=== PATIENT | female | born 1980 | race Asian ===

== ENCOUNTER → 2018-02-13 11:10 | Outpatient (CLI) | payer OTHER, SELFPAY ==
[2018-02-13 12:34] LABS: TSH w/ Reflex to FT4 1.11 uIU/mL (0.47-4.68)
== END ==
PROVIDERS: PCP Family Medicine; Visit Provider Family Medicine
DX: E05.90 Thyrotoxicosis, unspecified without thyrotoxic crisis or storm (principal)
CPT/HCPCS: 36415; 84443

== ENCOUNTER → 2018-03-14 11:23 | Outpatient (CLI) | payer OTHER, SELFPAY ==
[2018-03-14 13:27] LABS: TSH w/ Reflex to FT4 0.78 uIU/mL (0.47-4.68)
== END ==
PROVIDERS: PCP Family Medicine; Visit Provider Family Medicine
DX: E05.90 Thyrotoxicosis, unspecified without thyrotoxic crisis or storm (principal)
CPT/HCPCS: 36415; 84443

== ENCOUNTER → 2019-03-26 10:14 | Outpatient (CLI) | payer OTHER, SELFPAY ==
[2019-03-26 12:28] LABS: TSH w/ Reflex to FT4 0.11 uIU/mL (0.47-4.68)
[2019-03-26 13:03] LABS: Free T4, Direct Thyroxine 1.63 ng/dL (0.78-2.19)
== END ==
PROVIDERS: PCP Family Medicine; Visit Provider Family Medicine
DX: E05.90 Thyrotoxicosis, unspecified without thyrotoxic crisis or storm (principal)
CPT/HCPCS: 36415; 84439; 84443

== ENCOUNTER → 2019-06-24 10:15 | Outpatient (CLI) | payer OTHER, SELFPAY ==
[2019-06-24 12:08] LABS: TSH w/ Reflex to FT4 0.39 uIU/mL (0.47-4.68)
[2019-06-24 12:51] LABS: Free T4, Direct Thyroxine 1.18 ng/dL (0.78-2.19)
== END ==
PROVIDERS: PCP Family Medicine; Visit Provider Family Medicine
DX: E05.90 Thyrotoxicosis, unspecified without thyrotoxic crisis or storm (principal)
CPT/HCPCS: 36415; 84439; 84443

== ENCOUNTER → 2019-09-26 13:45 | Outpatient (CLI) | payer OTHER, SELFPAY ==
[2019-09-26 15:05] LABS: TSH w/ Reflex to FT4 1.23 uIU/mL (0.47-4.68)
== END ==
PROVIDERS: PCP Family Medicine; Referring Provider Family Medicine; Visit Provider Family Medicine
DX: E05.90 Thyrotoxicosis, unspecified without thyrotoxic crisis or storm (principal)
CPT/HCPCS: 36415; 84443

== ENCOUNTER → 2019-10-06 09:14 | Outpatient (CLI) | payer OTHER, SELFPAY ==
--- NOTE | 2019-10-06 | DI.MG.S_ITS ---
BILATERAL DIGITAL DIAGNOSTIC MAMMOGRAM 3D/2D: 10/06/2019 CLINICAL: Right breast lump baseline. Baseline mammogram. No prior exams were available for comparison. The tissue of both breasts is extremely dense, which lowers the sensitivity of mammography. No mass identified deep to the palpable skin marker in the right breast upper outer quadrant anterior depth. There are 2.7 cm x 1.2 cm x 2.6 cm segmental fine calcifications in the right breast at 3 o'clock middle depth. These are seen in additional views. There are possible amorphous calcifications in the left breast at 12 o'clock posterior depth. These are not seen in additional views. No other significant masses or calcifications are seen in either breast. IMPRESSION: SUSPICIOUS OF MALIGNANCY 1) The segmental fine calcifications in the right breast at 3 o'clock middle depth are at a low suspicion for malignancy. A stereotactic biopsy is recommended. Targeted ultrasound is also recommended and will immediately follow. 2) No significant mammographic finding in the right breast upper outer quadrant anterior depth to correlate with the palpable abnormality. Targeted ultrasound is recommended and will immediately follow. 3) Possible amorphous calcification in the left breast at 12 o'clock posterior depth are not seen on additional views and are probably benign. A follow-up mammogram in 6 months is recommended. This exam was interpreted at Station ID: [id number]. NOTE: For mammograms, a report in lay terms will be sent to the patient. Approximately 15% of breast malignancies will not be visualized mammographically. In the management of a palpable breast mass, a negative mammogram must not discourage biopsy of a clinically suspicious lesion. Electronically Signed By: Rey Martínez M.D. [facility] [place]/:10/06/2019 12:09:47 letter sent: Biopsy Required ACR BI-RADS Category 4a: Suspicious abnormality - low suspicion for malignancy [id number]
--- NOTE | 2019-10-06 09:15 | DI.US.S_ITS ---
LIMITED ULTRASOUND OF RIGHT BREAST AND AXILLA: 10/06/2019 CLINICAL: Palpable right breast lump + 2 areas concern on mammo. Comparison is made to exam dated: 10/06/2019 [facility]. Color flow and real-time ultrasound of the right breast 3 o'clock, 11 o'clock, and axilla regions were performed. Evans scale images of the real-time examination were reviewed. No mass identified sonographically in the medial right breast near the calcifications seen on mammogram. There is a 1.6 cm x 1.2 cm x 1.6 cm oval cyst with a smooth internal wall in the right breast at 11 o'clock anterior depth 4 cm from the nipple. This oval cyst is hypoechoic with a well-defined boundary and posterior acoustic enhancement. This correlates as palpated. Color flow imaging demonstrates that there is no vascularity present. There is an adjacent cyst measuring 0.9 cm that appears simple. Additionally, there is a 1.7 cm x 0.8 cm x 1.4 cm enlarged lymph node with uniform cortical thickening with a circumscribed margin in the right axillary tail. Cortex measures approximately 0.3 cm. This enlarged lymph node is hypoechoic with fatty hilum. This correlates as an incidental finding but was not seen on the prior diagnostic mammogram. Color flow imaging demonstrates that there is increased vascularity. IMPRESSION: PROBABLY BENIGN 1) No sonographic abnormality in the region of suspicious calcifications in the medial right breast. A stereotactic biopsy is recommended. 2) The 1.6 cm oval cyst in the right breast at 11 o'clock anterior depth corresponding to the palpable abnormality is consistent with a complicated cyst and is probably benign. Follow-up mammogram and ultrasound in 6 months is recommended. 3) The enlarged lymph node with uniform cortical thickening in the right axillary tail is probably benign. A follow-up ultrasound in 6 months is recommended to demonstrate stability. If the stereotactic biopsy is positive for breast carcinoma, an ultrasound guided biopsy would be recommended. Exam findings were discussed with the patient over the phone by Dr. Martínez. This exam was interpreted at Station ID: [id number]. Electronically Signed By: Rey Martínez M.D. [facility] [place]/:10/06/2019 12:28:33 letter sent: Followup Recommended Ultrasound BI-RADS: 3 Probably benign
== END ==
PROVIDERS: PCP Family Medicine; Referring Provider Family Medicine; Visit Provider Family Medicine
DX: R92.8 Other abnormal and inconclusive findings on diagnostic imaging of breast (principal); R92.1 Mammographic calcification found on diagnostic imaging of breast; N60.01 Solitary cyst of right breast; R59.0 Localized enlarged lymph nodes
CPT/HCPCS: 76642; 77066; G0279

== ENCOUNTER → 2020-03-19 12:44 | Outpatient (CLI) | payer OTHER, SELFPAY ==
--- NOTE | 2020-03-19 13:03 | DI.MG.S_ITS ---
Patient Name: ARABELLA BYNUM date: 1980 Sex: F Attending Physician: Kelvin Indications: Date: 03/19/2020 13:01 At the request of: RONEY WALLACE Procedure: MM diagnostic mammo BI BILATERAL DIGITAL DIAGNOSTIC MAMMOGRAM 3D/2D SHORT-TERM FOLLOW-UP: 03/19/2020 CLINICAL: Patient returns for a 6 month follow up of bilateral breasts. Comparison is made to exams dated: 10/24/2019 [facility], 10/06/2019 ultrasound, and 10/06/2019 mammogram [facility]. The tissue of both breasts is extremely dense, which lowers the sensitivity of mammography. The possible amorphous calcifications in the left breast are not visualized on this exam. There are benign calcifications with biopsy marking clip in the right breast. No significant masses, calcifications, or other findings are seen in either breast. IMPRESSION: INCOMPLETE: NEEDS ADDITIONAL IMAGING EVALUATION There is no abnormality seen in the right breast to correspond with the ultrasound finding, however, ultrasound is recommended. This exam was interpreted at Station ID: [id number]. NOTE: For mammograms, a report in lay terms will be sent to the patient. Approximately 15% of breast malignancies will not be visualized mammographically. In the management of a palpable breast mass, a negative mammogram must not discourage biopsy of a clinically suspicious lesion. SUMMARY: Targeted ultrasound is recommended for further evaluation and will be scheduled immediately following this exam. Continued Report - Page 2 of 2 Patient Name: ARABELLA BYNUM date: 1980 Sex: F Attending Physician: Kelvin Indications: Date: 03/19/2020 13:01 At the request of: RONEY WALLACE Procedure: MM diagnostic mammo BI Electronically Signed By: Con cuba/penrad:03/19/2020 14:59:20 ACR BI-RADS Category 0: Incomplete [id number]
--- NOTE | 2020-03-19 13:34 | DI.US.S_ITS ---
Patient Name: ARABELLA BYNUM date: 1980 Sex: F Attending Physician: Kelvin Indications: Date: 03/19/2020 13:47 At the request of: RONEY WALLACE Procedure: US breast RT limited LIMITED ULTRASOUND OF RIGHT BREAST AND AXILLA: 03/19/2020 CLINICAL: 6 month follow-up of cysts. Comparison is made to exams dated: 03/19/2020 mammogram - [facility], 10/24/2019 specimen, 10/24/2019 stereotactic biopsy - [facility] ultrasound of the right breast axilla was performed. Evans scale images of the real-time examination were reviewed. There are probably benign enlarged nodes in the right axilla that are not significantly changed. There is a benign 1 cm x 0.9 cm x 0.6 cm oval cyst with a smooth internal wall in the right breast at 11 o'clock anterior depth 4 cm from the nipple. This oval cyst is anechoic with a well-defined boundary and posterior acoustic enhancement. This abnormality is decreased in size. IMPRESSION: PROBABLY BENIGN The 1 cm x 0.9 cm x 0.6 cm oval cyst in the right breast is benign. A follow-up right ultrasound in 6 months is recommended to demonstrate stability. This exam was interpreted at Station ID: [id number]. Electronically Signed By: Con cuba/sean:03/19/2020 15:06:21 letter sent: Followup Recommended Ultrasound BI-RADS: 3 Probably benign
== END ==
PROVIDERS: PCP Family Medicine; Referring Provider Family Medicine; Visit Provider Family Medicine
DX: R92.8 Other abnormal and inconclusive findings on diagnostic imaging of breast (principal); R92.1 Mammographic calcification found on diagnostic imaging of breast; N60.01 Solitary cyst of right breast
CPT/HCPCS: 76642; 77066; G0279

== ENCOUNTER → 2020-08-02 12:14 | Outpatient (CLI) | payer OTHER, SELFPAY ==
[2020-08-02 13:49] LABS: Free T4, Direct Thyroxine 0.89 ng/dL (0.78-2.19)
[2020-08-02 14:03] LABS: Thyroid Stimulating Hormone 1.59 uIU/mL (0.47-4.68)
== END ==
PROVIDERS: PCP Family Medicine; Referring Provider Family Medicine; Visit Provider Family Medicine
DX: E05.90 Thyrotoxicosis, unspecified without thyrotoxic crisis or storm (principal)
CPT/HCPCS: 36415; 84439; 84443

== ENCOUNTER → 2020-09-08 11:18 | Outpatient (CLI) | payer OTHER, SELFPAY ==
--- NOTE | 2020-09-08 | DI.US.S_ITS ---
ULTRASOUND OF RIGHT BREAST: 09/08/2020 CLINICAL: Patient returns today to evaluate focal asymmetries in the right breast. Comparison is made to exams dated: 03/19/2020 mammogram - [facility], 10/24/2019 specimen, 10/24/2019 stereotactic biopsy - [facility], 10/06/2019 ultrasound, and 03/19/2020 ultrasound - [facility]. Color flow and real-time ultrasound of the right breast were performed. Evans scale images of the real-time examination were reviewed. There is a 0.6 cm x 0.6 cm x 0.8 cm cyst with debris in the right breast at 11 o'clock middle depth 4 cm from the nipple. This cyst with debris is hypoechoic, previously characterized to be simple, and likely now proteinaceous. Color flow imaging demonstrates that there is an adjacent vascularity. This abnormality is decreased in size. There also is a benign 1.0 cm x 0.6 cm x 1.0 cm oval cyst with a smooth internal wall in the right breast at 11 o'clock posterior depth 4 cm from the nipple. This oval cyst is anechoic. This abnormality is not significantly changed. Color flow imaging demonstrates that there is no vascularity present. Additionally, there are a few benign lymph nodes in the right axillary tail. These have not significantly changed. IMPRESSION: PROBABLY BENIGN The 0.8 cm cyst with debris in the right breast at 11 o'clock middle depth is consistent with a proteinaceous/ complicated cyst, has decreased in size, and is probably benign. The 1.0 cm oval cyst in the right breast at 11 o'clock posterior depth is consistent with a simple cyst and is benign. The lymph node in the right axillary tail is consistent with a lymph node and is benign. A follow-up right ultrasound in 12 months is recommended to document continued resolution of the proteinaceous cyst Findings and recommendations were conveyed to the patient at time of exam. . This exam was interpreted at Station ID: [id number]. Electronically Signed By: Nadia henry/:09/09/2020 16:22:56 letter sent: Followup Recommended Ultrasound BI-RADS: 3 Probably benign
== END ==
PROVIDERS: PCP Family Medicine; Referring Provider Family Medicine; Visit Provider Family Medicine
DX: R92.8 Other abnormal and inconclusive findings on diagnostic imaging of breast (principal); N60.01 Solitary cyst of right breast
CPT/HCPCS: 76642

== ENCOUNTER → 2020-09-24 15:23 | Outpatient (CLI) | payer OTHER, SELFPAY ==
[2020-09-24] MEDS: COVID-19 VACC #1, MRNA(MOD) 100 MCG/0.5 ML VIAL IM (15:31)
== END ==
PROVIDERS: PCP Family Medicine; Visit Provider Internal Medicine
DX: Z23 Encounter for immunization (principal)
CPT/HCPCS: 0011A; 91301

== ENCOUNTER → 2020-10-22 12:29 | Outpatient (CLI) | payer OTHER, SELFPAY ==
[2020-10-22] MEDS: COVID-19 VACC #2, MRNA(MOD) 100 MCG/0.5 ML VIAL IM (12:44)
== END ==
PROVIDERS: PCP Family Medicine; Visit Provider Internal Medicine
DX: Z23 Encounter for immunization (principal)
CPT/HCPCS: 0012A; 91301

== ENCOUNTER → 2021-04-07 15:41 | Outpatient (CLI) | payer OTHER, SELFPAY ==
[2021-04-07 17:20] LABS: TSH w/ Reflex to FT4 1.25 uIU/mL (0.47-4.68)
== END ==
PROVIDERS: PCP Family Medicine; Referring Provider Family Medicine; Visit Provider Family Medicine
DX: E05.90 Thyrotoxicosis, unspecified without thyrotoxic crisis or storm (principal)
CPT/HCPCS: 36415; 84443

== ENCOUNTER → 2021-08-31 14:12 | Outpatient (CLI) | payer OTHER, SELFPAY ==
--- NOTE | 2021-08-31 14:14 | DI.US.S_ITS ---
LIMITED ULTRASOUND OF RIGHT BREAST: 08/31/2021 CLINICAL: Palpable right breast lump. Comparison is made to exams dated: 08/31/2021 mammogram, 09/08/2020 ultrasound, 03/19/2020 mammogram, and 03/19/2020 ultrasound - [facility]. Color flow and real-time ultrasound of the right breast 10-11 o'clock region were performed. Evans scale images of the real-time examination were reviewed. There is a new 0.5 cm taller than wide irregular solid mass in the right breast at 10 o'clock posterior depth. This irregular solid mass is hypoechoic with no posterior acoustic shadowing or enhancement. There also is a 0.6 cm x 0.6 cm x 0.8 cm cyst with debris in the right breast at 11 o'clock posterior depth 4 cm from the nipple. This cyst with debris is hypoechoic. This abnormality is not significantly changed. Color flow imaging demonstrates that there is an adjacent vascularity. IMPRESSION: SUSPICIOUS OF MALIGNANCY The new 0.5 cm taller than wide irregular solid mass in the right breast at 10 o'clock posterior depth is suspicious of malignancy. An ultrasound guided biopsy is recommended. The 0.6 cm x 0.6 cm x 0.8 cm cyst with debris in the right breast at 11 o'clock posterior depth is consistent with a complicated cyst and is probably benign. This exam was interpreted at Station ID: [id number]. Electronically Signed By: Inder Kimbrough M.D., jr/sean:08/31/2021 15:28:28 letter sent: Biopsy Required Ultrasound BI-RADS: 4 Suspicious for malignancy
--- NOTE | 2021-08-31 14:14 | DI.MG.S_ITS ---
BILATERAL DIGITAL DIAGNOSTIC MAMMOGRAM 3D/2D: 08/31/2021 CLINICAL: Short term follow up of the right breast. Comparison is made to exams dated: 09/08/2020 ultrasound, 03/19/2020 ultrasound, and 03/19/2020 mammogram - [facility]. The tissue of both breasts is extremely dense, which lowers the sensitivity of mammography. The possible amorphous calcifications in the left breast are not visualized on this exam. There are benign calcifications with biopsy marking clip in the right breast. No significant masses, calcifications, or other findings are seen in either breast. IMPRESSION: INCOMPLETE: NEEDS ADDITIONAL IMAGING EVALUATION No suspicious finding. Previously recommended ultrasound is being performed currently, report forthcoming. This exam was interpreted at Station ID: [id number]. NOTE: For mammograms, a report in lay terms will be sent to the patient. Approximately 15% of breast malignancies will not be visualized mammographically. In the management of a palpable breast mass, a negative mammogram must not discourage biopsy of a clinically suspicious lesion. Electronically Signed By: Inder Kimbrough M.D. jr/:08/31/2021 15:09:35 ACR BI-RADS Category 0: Incomplete 3340F
== END ==
PROVIDERS: PCP Family Medicine; Referring Provider Family Medicine; Visit Provider Family Medicine
DX: R92.8 Other abnormal and inconclusive findings on diagnostic imaging of breast (principal); N63.11 Unspecified lump in the right breast, upper outer quadrant; N60.02 Solitary cyst of left breast
CPT/HCPCS: 76642; 77066; G0279

== ENCOUNTER → 2021-09-06 10:26 | Outpatient (CLI) | payer OTHER, SELFPAY ==
[2021-09-06 15:19] LABS: COVID19 -Nasal RAPID Negative (Negative)
== END ==
PROVIDERS: PCP Family Medicine; Visit Provider Physician Assistant
DX: Z20.822 Contact with and (suspected) exposure to COVID-19 (principal)
CPT/HCPCS: 87635

== ENCOUNTER → 2021-09-12 14:07 | Outpatient (CLI) | payer OTHER, SELFPAY ==
[2021-09-12 15:28] LABS: Alanine Aminotransferase 19 IU/L (<35); Albumin 4.6 g/dL (3.5-5.0); Albumin Globulin Ratio 1.2 (1.0-2.8); Alkaline Phosphatase 37 U/L (38-126); Aspartate Aminotransferase 32 IU/L (14-36); Bilirubin Total 0.3 mg/dL (0.2-1.3); Bilirubin Unconjugated 0.3 mg/dL (0.0-1.1); Globulin 3.7 g/dL (1.7-4.1); HEMOLYSIS < 15 (0-50); Total Protein 8.3 g/dL (6.3-8.2)
== END ==
PROVIDERS: PCP Family Medicine; Referring Provider Physician Assistant Medical; Visit Provider Physician Assistant Medical
DX: R74.01 Elevation of levels of liver transaminase levels (principal)
CPT/HCPCS: 36415; 80076

== ENCOUNTER → 2021-10-04 10:38 | Outpatient (CLI) | payer OTHER, SELFPAY ==
--- NOTE | 2021-10-04 | PATH_ITS ---
[facility] Accession Number: [id number] . 01 Material submitted: . breast - RIGHT BREAST MASS 10:00 4CM FN . 02 Diagnosis: Right Breast Mass 10 o'clock, 4 cm From Nipple, Needle Core Biopsy: Benign breast parenchyma with fibroadenomatous and fibrocytic change consisting of cystic dilatation of terminal ductules, apocrine metaplasia, stromal fibrosis, and adenosis. Rare microcalcifications are present and are associated with benign ductal epithelium. Negative for atypical hyperplasia, in-situ carcinoma or invasive tumor. [facility] 10/10/2021 1809 Local . 02 Comment: As part of routine software quality manager, this case was also reviewed by Dr. Suarez, who agrees with the interpretation. . 02 Electronically signed: . Josette Morel MD, Pathologist NPI- [id number] . 01 Gross description: . Received in formalin and labeled with the patient's name and designated right breast 10 o'clock are three, 0.2 cm in diameter, elongated portions of vann fibrofatty tissue, 0.7 - 0.9 cm long, entirely submitted in A1. Time in formalin is not provided. The specimen is collected on 10/04/2021 at approximately 12:09 PM for a total fixation time under 72 hours. (MAREK:[id number]) /[facility] 10/06/2021 1728 Local . 02 Microscopic: . . . 02 Pathologist provided ICD-10: N64.9 . 02 CPT . 750364, L31219 Performed at: 01 [facility] [address] [facility], [place], [place] [id number] MD Jovon Goodman MD Phone: [phone] Performed at: 02 [facility] [address] [place] [id number] MD Kasey Wyatt MD Phone: [phone]
--- NOTE | 2021-10-04 | DI.MG.S_ITS ---
UNILATERAL RIGHT DIGITAL DIAGNOSTIC MAMMOGRAM 3D/2D: 10/04/2021 CLINICAL: Post clip right. Comparison is made to exams dated: 08/31/2021 ultrasound, 08/31/2021 mammogram, and 09/08/2020 ultrasound - [facility]. The tissue of right breast is extremely dense, which lowers the sensitivity of mammography. There is a marker clip in the appropriate position in the right breast at 10 o'clock middle depth. This marker clip placement is at the biopsy site. IMPRESSION: POST PROCEDURE MAMMOGRAM FOR MARKER PLACEMENT There was a successful marker clip placement in the right breast middle depth. This exam was interpreted at Station ID: [id number]. NOTE: For mammograms, a report in lay terms will be sent to the patient. Approximately 15% of breast malignancies will not be visualized mammographically. In the management of a palpable breast mass, a negative mammogram must not discourage biopsy of a clinically suspicious lesion. Electronically Signed By: Nneka Lopez M.D. ldashley/penrad:10/04/2021 12:18:59 ACR BI-RADS Category Post-procedure mammogram for marker placement
--- NOTE | 2021-10-04 10:40 | DI.US.S_ITS ---
ULTRASOUND GUIDED BIOPSY RIGHT BREAST USING VACUUM DEVICE WITH MARKING DEVICE INSERTED AND POST DIGITAL MAMMOGRAPHIC IMAGIN10/04/2021 CLINICAL: Right breast mass. PATIENT CONSENT: Risks (minor bleeding, infection, vasovagal reaction and repeat procedure), benefits and alternatives were explained to the patient and written informed consent was obtained. Correlation is made to exams dated: 08/31/2021 ultrasound, 08/31/2021 mammogram, 09/08/2020 ultrasound, 03/19/2020 ultrasound, 03/19/2020 mammogram - [facility], and 10/24/2019 specimen - [facility]. An ultrasound guided biopsy using real-time ultrasound was performed for the wider than tall irregular shaped mass located in the right breast at 10 o'clock posterior depth. The skin was prepped in the usual manner. Local anesthetic was administered to the access site. A skin layla was made in the breast. The abnormality was approached from the lateral aspect. A 13 gauge biopsy needle was placed adjacent to the abnormality under ultrasound guidance. Once the needle was documented to be in the correct location, four specimens were obtained using the Mammotome biopsy system. A Vision biopsy clip was inserted into the biopsy cavity. A skin closure strip was applied to the access site. Post procedure digital mammographic imaging demonstrates the location device at the targeted area. The specimens were sent to the laboratory for pathological analysis. IMPRESSION: ULTRASOUND GUIDED BIOPSY BENIGN Ultrasound guided biopsy of the wider than tall mass in the right breast at 10 o'clock posterior depth was successful. Pathology indicates benign adenosis (AD), apocrine metaplasia (AM), fibroadenomatoid change, fibrocystic changes (FC), and stromal fibrosis. Pathology results are concordant with imaging findings. Recommend ultrasound in 6 months to ensure stability of the biopsied mass in the right breast 10:00 posterior depth and also for six-month follow-up of a 0.6 x 0.6 x 0.8 cm cyst with debris in the right breast 11:00 posterior depth described on 08/31/2021 ultrasound. This exam was interpreted at Station ID: [id number]. Nneka King [facility]/:10/12/2021 09:39:55
== END ==
PROVIDERS: PCP Family Medicine; Referring Provider Family Medicine; Visit Provider Family Medicine
DX: N60.81 Other benign mammary dysplasias of right breast (principal); N60.31 Fibrosclerosis of right breast; N60.21 Fibroadenosis of right breast; N60.41 Mammary duct ectasia of right breast
CPT/HCPCS: 19083; 77065

== ENCOUNTER → 2021-12-15 15:37 | Outpatient (CLI) | payer OTHER, SELFPAY ==
[2021-12-15 16:21] LABS: COVID19 -Nasal RAPID Negative (Negative)
== END ==
PROVIDERS: PCP Family Medicine; Visit Provider Obstetrics & Gynecology
DX: Z20.822 Contact with and (suspected) exposure to COVID-19 (principal); Z01.812 Encounter for preprocedural laboratory examination
CPT/HCPCS: 87635

== ENCOUNTER 2021-12-16 06:43 | Day surgery (SDC) | payer OTHER, SELFPAY ==
[2021-12-13 14:54] VITALS: BMI 18.3
[2021-12-16] VITALS (8 sets, daily range): BP systolic 108–124; BP diastolic 69–79; PULSE 57–78; RESP 8–16; TEMP 36.3–36.7; O2SAT 16–100; BMI 18.3
--- NOTE | 2021-12-16 | PATH_ITS ---
[facility] Accession Number: [id number] . 01 Material submitted: . PART A: endocervix - ENDOCERVICAL CURETTINGS PART B: cervix - LEEP CONE . 01 Clinical history: . B: CUT AT 12:00 . 01 Diagnosis: A. Endocervix, Curettage: Benign endocervical epithelium. Negative for dysplasia. . B. Uterine Cervix, LEEP Cone Excision: High-grade squamous intraepithelial lesion (moderate dysplasia/LINDA-2). Negative for glandular dysplasia and invasive malignancy. Margins of excision negative for high-grade squamous intraepithelial lesion. [facility] 12/20/2021 1647 Local . 01 Comment: These histologic findings correlate with the cytology findings in this patient's most recent Pap test (case #[id number], 09/29/2021). . 01 Electronically signed: . Joana Lyon MD, Pathologist NPI- [id number] . 01 Gross description: . A. Received in formalin, labeled with the patient's name and designated 2. Endocervical curettings per container and 1. Endocervical curettings per requisition, is a 1.5 x 0.5 x 0.2 cm aggregate of mucohemorrhagic material and scant tissue, entirely submitted in cassette A1. B. Received in formalin, labeled with the patient's name and designated 1. LEEP cone per container and 2. LEEP cone per requisition, is a 1.6 x 1.2 cm cervical cone, excised to a depth up to 0.7 cm, oriented with a cut at 12 o'clock. The mucosa is vann and glistening with no discrete mass or other lesions identified. The endocervical margin is inked yellow, and the remaining ectocervical margin is inked blue. The tissue is radially sectioned and entirely submitted as follows: B1: 12-3 o'clock. B2: 3-6 o'clock. B3: 6-9 o'clock. B4: 9-12 o'clock. (MAREK:[id number]) /RAMILA 12/17/20212050 Local . 01 Pathologist provided ICD-10: N87.1 . 01 CPT . 072034, [id number] Specimen Comment: A courtesy copy of this report has been sent to [phone] Performed at: 01 [facility] [address] [place] [address], [place], [place] [id number] MD Jovon Goodman MD Phone: [phone]
--- NOTE | 2021-12-16 07:48 | PM.PREOP ---
Pre-operative Note COVID-19 COVID-19 status: Negative Result date/Date tested (Pos, Neg/Pending): 12/15/21 Criteria for continued procedure: Non-surgical alternatives not available or appropriate per current SOC Interval Note History & Physical reviewed/Exam performed by Physician: Yes Changes to H&P: No
[2021-12-16] MEDS: LACTATED RINGERS 1,000 ML 100 ML IV (07:51)
--- NOTE | 2021-12-16 07:56 | SUR.OPER ---
Lithotomy on padded OR bed, head on pillow, arms secured on padded arm boards at <90 degrees abduction. Legs secured in padded yellow fins stirrups.
--- NOTE | 2021-12-16 08:45 | P.OP_ITS ---
Operative Date/Time/Diagnoses Date of procedure: 12/16/21 Time of procedure: 08:15 Pre-op diagnosis: High-grade squamous intraepithelial lesion (HGSIL) Post-op diagnosis: same Procedure & Clinicians Procedure: Procedures Operation Date: 12/16/21 08:15 Actual Procedure Side Surgeon p LEEP Procedure Joon Rice MD Indications: Cristo is a 41-year-old female referred from her primary care provider (Tejinder) for colposcopy due to a recent Pap smear performed 09/28/2021 which shows atypical squamous cells, cannot rule out high-grade squamous intraepithelial lesion (ASC-H).? In addition the patient's co-testing is positive for high risk HPV.? Patient has not had abnormal Paps in the past.? Colposcopy w/ biopsy and ECC performed on 10/12/2021 with both showing CIN3.? After counseling regarding all options patient has decided to proceed with loop electrosurgical excision procedure (LEEP) which is scheduled for the main OR of [facility] on 12/15/2021 and the patient presents today for her preoperative evaluation, counseling, and consent. Surgeon: Joon Rice Anesthesia Type: General Operative Notes Findings: Localized areas of aceto-white epithelium at the verge of the cervical os extending up into the endocervical canal. No vaginal mucosal lesions noted. Closure Type: not applicable Specimen(s): other (LEEP cone (cut at 12); ECC) Estimated blood loss (mL): 25 Blood products transfused: none Procedure in detail: With the patient under satisfactory general LMA in the modified dorsal lithotomy position the patient was prepped and draped for LEEP. A pre-surgical safety time-out was then taken in accordance with [facility] Main OR protocols. A LEEP speculum was inserted in the vagina and the upper vagina and cervix immersed in vinegar solution. The areas of abnormality were well delineated and using a 10 x 15 mm loop electrode, the LEEP cone was performed in the usual manner with 50 w pure cut so as to excise all the areas noted to be abnormal on visualization. The specimen was cut at 12:00 p.m. and submitted in formalin for pathologic evaluation. An ECC was then performed with a Kavorjaxsonan box curette in a separate specimen obtained/submitted. A ball electrode was then used to coagulate the entire LEEP base and at the end of this process complete hemostasis was achieved. The speculum was then removed from the vagina, the patient awakened, and transferred to PACU for a period of observation and recovery after having tolerated the procedure well. Complications: none Post-operative Condition: stable Disposition: PACU Plan for aftercare: Routine postoperative care with follow-up appointment in 2 weeks.
[2021-12-16] MEDS: ACETAMINOPHEN 325 MG TABLET 975 MG PO (09:14)
--- NOTE | 2021-12-16 09:19 | SUR.PHASEI ---
0936 Pt transferred to [facility] to Isaias RODRIGUEZ. Pt awake, alert, Complained of topical irritation, skin intact, no redness. Instructed pt that she could rinse externally when she got home. Naomi pad dry.
== END 2021-12-16 09:37 | disposition home or self-care (01) ==
PROVIDERS: PCP Family Medicine; Referring Provider Obstetrics & Gynecology; Visit Provider Obstetrics & Gynecology
PROC: 0UBC7ZZ Excision of Cervix, Via Natural or Artificial Opening (ICD-10-PCS; CPT 57522; principal; 2021-12-16 08:15)
DX: N87.1 Moderate cervical dysplasia (principal); M32.8 Other forms of systemic lupus erythematosus
CPT/HCPCS: 57522; 81025; J1100; J2405; J2704; J3010

== ENCOUNTER → 2022-03-31 11:10 | Outpatient (CLI) | payer OTHER, SELFPAY ==
--- NOTE | 2022-03-31 11:11 | DI.US.S_ITS ---
LIMITED ULTRASOUND OF RIGHT BREAST: 03/31/2022 CLINICAL: Patient returns for a 6 month follow up of the right breast post-biopsy. Comparison is made to exams dated: 10/04/2021 ultrasound biopsy, 10/04/2021 mammogram, 08/31/2021 ultrasound, 08/31/2021 mammogram, 09/08/2020 ultrasound, and 03/19/2020 ultrasound - [facility]. Color flow, real-time, and Doppler ultrasound of the right breast 10-11 o'clock region were performed. Evans scale images of the real-time examination were reviewed. There is a new 0.5 cm taller than wide irregular solid mass in the right breast at 10 o'clock posterior depth. This irregular solid mass is hypoechoic with no posterior acoustic shadowing or enhancement. There also is a benign 0.6 cm x 0.6 cm x 0.8 cm cyst with debris in the right breast at 11 o'clock posterior depth 4 cm from the nipple. This cyst with debris is hypoechoic. This abnormality is not significantly changed. Color flow imaging demonstrates that there is an adjacent vascularity. No significant abnormalities were seen sonographically in the right breast. IMPRESSION: BENIGN There is no sonographic evidence of malignancy. Previously biopsied mass is not significantly changed in appearance, with benign pathology. Previously seen complicated cyst is unchanged and benign. This exam was interpreted at Station ID: [id number]. Electronically Signed By: Inder Kimbrough M.D. jr/:04/03/2022 09:41:38 letter sent: Normal Exam Ultrasound BI-RADS: 2 Benign
== END ==
PROVIDERS: PCP Family Medicine; Referring Provider Family Medicine; Visit Provider Family Medicine
DX: R92.8 Other abnormal and inconclusive findings on diagnostic imaging of breast (principal); N63.11 Unspecified lump in the right breast, upper outer quadrant; N60.01 Solitary cyst of right breast
CPT/HCPCS: 76642

== ENCOUNTER → 2022-08-08 11:23 | Outpatient (CLI) | payer OTHER, SELFPAY ==
[2022-08-08 12:54] LABS: Add Manual Diff / Slide Review NO; Basophils Absolute Auto 0 /uL (0-100); Basophils Percent Auto 0.6 % (0-2); Eosinophils Absolute Auto 0 /uL (0-450); Eosinophils Percent Auto 0.3 % (2-4); Hematocrit 37.5 % (36-46); Hemoglobin 12.4 g/dL (12.0-16.0); Lymphocytes Absolute Auto 1000 /uL (1100-4500); Lymphocytes Percent Auto 24.7 % (25-40); Mean Corpuscular HGB Conc 33.1 % (30-36); Mean Corpuscular Hemoglobin 29.5 PG (26-34); Mean Corpuscular Volume 89.1 fL (80-100); Monocytes Absolute Auto 300 /uL (0-900); Monocytes Percent Auto 8.1 % (3-14); Neutrophils Absolute Auto 2700 /uL (1500-7000); Neutrophils Percent Auto 66.3 % (50-75); Platelet Count 218 X10^3/uL (150-400); Red Blood Cell Count 4.21 X10^6/uL (4.0-5.2); Red Cell Distribution Width 14.4 % (11.6-14.8); White Blood Cell Count 4.1 X10^3/uL (4.5-11.0)
[2022-08-08 13:15] LABS: Erythrocyte Sedimentation Rate 17 MM/HR (0-20)
[2022-08-08 13:36] LABS: Alanine Aminotransferase 48 IU/L (<35); Albumin 4.6 g/dL (3.5-5.0); Albumin Globulin Ratio 1.3 (1.0-2.8); Alkaline Phosphatase 46 U/L (38-126); Aspartate Aminotransferase 45 IU/L (14-36); BUN Creatinine Ratio 11.1 (6-22); Bilirubin Total 0.4 mg/dL (0.2-1.3); Blood Urea Nitrogen 7 mg/dL (7-17); C-Reactive Protein Quant < 0.5 mg/dL (<1.0); Calcium 8.6 mg/dL (8.4-10.2); Carbon Dioxide 26 mmol/L (22-32); Chloride 99 mmol/L (98-107); Estimated Glomerular Filt Rate > 60 mL/min (>60); Globulin 3.6 g/dL (1.7-4.1); Glucose 74 mg/dL (70-100); HEMOLYSIS < 15 (0-50); Potassium 3.5 mmol/L (3.4-5.1); Sodium 137 mmol/L (137-145); Total Protein 8.2 g/dL (6.3-8.2)
[2022-08-09 08:18] LABS: Complement C3 82 mg/dL (82-167)
[2022-08-17 02:07] LABS: Complement Total CH50 48 U/mL (>41)
== END ==
PROVIDERS: PCP Family Medicine; Referring Provider Physician Assistant Medical; Visit Provider Physician Assistant Medical
DX: M32.9 Systemic lupus erythematosus, unspecified (principal)
CPT/HCPCS: 36415; 80053; 85025; 85651; 86140; 86160; 86162

== ENCOUNTER → 2022-08-31 09:15 | Outpatient (CLI) | payer OTHER, SELFPAY ==
[2022-08-31 11:46] LABS: Alanine Aminotransferase 66 IU/L (<35); Albumin 4.1 g/dL (3.5-5.0); Albumin Globulin Ratio 1.3 (1.0-2.8); Alkaline Phosphatase 44 U/L (38-126); Aspartate Aminotransferase 62 IU/L (14-36); Bilirubin Total 0.5 mg/dL (0.2-1.3); Bilirubin Unconjugated 0.4 mg/dL (0.0-1.1); Globulin 3.2 g/dL (1.7-4.1); HEMOLYSIS < 15 (0-50); Total Protein 7.3 g/dL (6.3-8.2)
== END ==
PROVIDERS: Family Provider Family Medicine; PCP Family Medicine; Referring Provider Physician Assistant Medical; Visit Provider Physician Assistant Medical
DX: R74.01 Elevation of levels of liver transaminase levels (principal)
CPT/HCPCS: 36415; 80076

== ENCOUNTER → 2022-09-28 07:31 | Outpatient (CLI) | payer OTHER, SELFPAY ==
[2022-09-28 08:35] LABS: Alanine Aminotransferase 32 IU/L (<35); Albumin 4.4 g/dL (3.5-5.0); Albumin Globulin Ratio 1.3 (1.0-2.8); Alkaline Phosphatase 35 U/L (38-126); Aspartate Aminotransferase 38 IU/L (14-36); Bilirubin Total 0.3 mg/dL (0.2-1.3); Bilirubin Unconjugated 0.3 mg/dL (0.0-1.1); Globulin 3.5 g/dL (1.7-4.1); HEMOLYSIS 18 (0-50); Total Protein 7.9 g/dL (6.3-8.2)
== END ==
PROVIDERS: Family Provider Family Medicine; PCP Family Medicine; Referring Provider Physician Assistant Medical; Visit Provider Physician Assistant Medical
DX: R74.01 Elevation of levels of liver transaminase levels (principal)
CPT/HCPCS: 36415; 80076

== ENCOUNTER 2022-10-05 13:45 | Outpatient (RCR) | payer OTHER, SELFPAY ==
--- NOTE | 2022-09-13 16:40 | PT.OIE ---
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 LINDA II (cervical intraepithelial neoplasia II) Lupus Other forms of systemic lupus erythematosus (08/09/16) Visit Care Team Role Provider Type Inder Warren MD Attending Provider Physician Family Provider Primary Care Provider Referring Provider Specialty: Family Practice Address: [address] [place] [address], [facility] Email: [email or web address] Physical Therapy Initial Evaluation PT-OP-A Visit Information Start: 09/13/22 16:01 Freq: Status: Active Protocol: Document 09/13/22 13:45 DCW (Rec: 09/13/22 16:27 DC [id number]) Out-Patient Physical Therapy Visit Information Visit Information Visit Type Initial Evaluation Visit Start Time 13:45 Visit Stop Time 14:30 Total Visit Minutes 45 Visit Number 1 Number of PRICING CONSULTANT Visits 0 Evaluation Information Evaluation Date 09/13/22 PT-OP-B Current Condition Start: 09/13/22 16:01 Freq: Status: Active Protocol: Document 09/13/22 13:45 DCW (Rec: 09/13/22 16:27 DCW [id number]) Current Condition History of Current Condition Onset Date 5-6 year history Current Complaints Low back pain, occasional radiating symptoms History of Current Condition Pt is a 41 year old female presenting with complaints of ongoing low back pain which has been off and on over the last 5-6 years. Unclear what was the initial cause, she thinks it may have been attempting to lift something, but she is unsure. In the past , pt notes she has had a flare -up if she moved wrong or twisted in some way, her back would bother her for 2-3 days, and then she would feel better. This most recent flare -up, however, lasted for multiple months, although she admits that she has been feeling much better recently, although there is still some lingering pain. 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 Noted that recently, when she has been sore, she had a very difficult time driving 25 minutes from [employer] to [employer]. Pt has been working out more recently, along with yoga, and she feels this has helped. Prior Treatments and Tests Pt reports she has not had any imaging yet at this time. PT-OP-C Subjective Start: 09/13/22 16:01 Freq: Status: Active Protocol: Document 09/13/22 13:45 DCW (Rec: 09/13/22 16:27 DCW [id number]) OP-PT Subjective Patient Comments Patient Comments Doing much better over the past few weeks. Patient Reported Progress Improving Patient Questionnaires Oswestry Low Back Index Oswestry Score 12/50 = 24% Oswestry Impairment 20 to 39% Impaired (Score 20- 39) OP-PT Pain Assessment Pain Assessment Grid Paper Pain Assessment Grid Completed Yes Location Right Lower Back Intensity 6 Description Aching,Dull Frequency Occasional PT-OP-F Manual Assessment Start: 09/13/22 16:01 Freq: Status: Active Protocol: Document 09/13/22 13:45 DCW (Rec: 09/13/22 16:27 DCW [id number]) Manual Assessments Soft Tissue Assessment Soft Tissue Mobility Assessment Moderate tone in right lumbar paraspinals, QL, and piriformis. Complaints of non- specific muscle tightness with most passive movement of right LE, pt unable to define what or where she felt was tight. PT-OP-K Range of Motion Start: 09/13/22 16:01 Freq: Status: Active Protocol: Document 09/13/22 13:45 DCW (Rec: 09/13/22 16:27 DCW [id number]) Lumbar Spine Range of Motion Lumbar Spine Active Degrees Testing Position Standing Flexion 70 Extension 30 Lateral Flexion Left 46 Lateral Flexion Right 45 Comments Lateral flexion measured in cm from floor to fingertips Pt noted tightness in low back at end-range flexion PT-OP-L Special Tests Start: 09/13/22 16:01 Freq: Status: Active Protocol: Document 09/13/22 13:45 DCW (Rec: 09/13/22 16:27 DCW [id number]) Special Tests Lumbar Spine Special Tests Manual Traction Test Results Tightness in R lumbar Slump Test Results Tightness in R lumbar Vertical Spine Loading Test Results Tightness in R lumbar Reno Test Results Tightness in R lumbar Straight Leg Raise Test Results Tightness in R lumbar Standing Flexion Test Results Tightness in R lumbar Compression Test Results Tightness in R lumbar A-P Shearing Test Results Negative Hip Special Tests Piriformis Test Results Tightness in R posterior hip WARREN Test Results Tightness in R lumbar PT-OP-Q Treatments Start: 09/13/22 16:01 Freq: Status: Active Protocol: Document 09/13/22 13:45 DCW (Rec: 09/13/22 16:27 DCW [id number]) Therapeutic Exercises Supine Exercises Piriformis stretch Supine Exercise Name Opposite knee to shoulder Side right LTR Supine Exercise Name LTR PPT /c SLR Supine Exercise Name PPT /c TrA, SLR PPT /c Marching Supine Exercise Name PPT /c TrA, marching PPT Supine Exercise Name PPT /c TrA contraction Sidelying Exercises Reverse Clamshell Sidelying Exercise Name Reverse Clamshell Side right Clamshell Sidelying Exercise Name Clamshell Side right PT-OP-T Assessment and Plan Start: 09/13/22 16:01 Freq: Status: Active Protocol: Document 09/13/22 13:45 DCW (Rec: 09/13/22 16:39 DCW [id number]) Physical Therapy Assessment Rehab Potential Rehabilitation Potential Good Evaluation Complexity Number of Personal Factors/Comorbidities 0 Number of Body Systems Impaired 1-2 Clinical Presentation at Evaluation Stable Impairments Impairments Activity Tolerance,Functional Activities,Functional Mobility ,Pain,Soft Tissue Mobility, Tone Goals Two Impairment Pt experiences increased pain with extended sitting or standing C Consultant Goal (LTG) Pt to tolerate sitting in her car for longer than 35 minutes without increased pain to enable her to tolerate drive from [employer] with out worsening symptoms LTG Duration 11/13/22 One Impairment Pt does not have an appropriate Home Exercise Program Short Term Goal (STG) Pt to be independent and compliant with an appropriate HEP STG Duration 10/14/22 Assessment Summary Assessment Pt presents with signs and symptoms consistent with vague low back/posterior hip pain and increased tone. Overall has already shown good improvement since she was initially seen by her PCP, and reports more severe symptoms have largely been eliminated. Does still note general feeling of tightness in right hip and low back. Will likely benefit from instruction in HEP focusing on hip/core strengthening and stretching, as well as body mechanics for lifting, in hopes to prevent further flare-ups of back pain . Physical Therapy Plan Frequency and Duration Frequency of Treatment 1-2x/week Plan of Care Start Date 09/13/22 Plan of Care End Date 11/13/22 Therapeutic Interventions Therapeutic Interventions Home Exercise Program,Joint Mobilizations,Manual Therapy, Neuromuscular Re-education, Patient/Caregiver Education, Self-Care/Home Management,Soft Tissue Mobilization, Therapeutic Activities, Therapeutic Exercises Modalities Cold Pack/Ice Massage,Hot Packs Next Visit Focus/Plan Next Note Type Treatment Note Next Visit Plan Core and hip strengthening, flexibility, STM
--- NOTE | 2022-09-13 16:40 | PT.OPPOC ---
Physical, Occupational & Speech Therapy At [facility] Current Diagnoses Sciatica, unspecified side (09/13/22) Low back pain, unspecified (09/13/22) Visit Care Team Role Provider Type Inder Warren MD Attending Provider Physician Family Provider Primary Care Provider Referring Provider Specialty: Family Practice Address: [address] [place] [address], [facility] Email: [email or web address] Plan Of Care PT-OP-T Assessment and Plan Start: 09/13/22 16:01 Freq: Status: Active Protocol: Document 09/13/22 13:45 DCW (Rec: 09/13/22 16:39 DCW [id number]) Physical Therapy Assessment Rehab Potential Rehabilitation Potential Good Evaluation Complexity Number of Personal Factors/Comorbidities 0 Number of Body Systems Impaired 1-2 Clinical Presentation at Evaluation Stable Impairments Impairments Activity Tolerance,Functional Activities,Functional Mobility ,Pain,Soft Tissue Mobility, Tone Goals Two Impairment Pt experiences increased pain with extended sitting or standing Pricing Manager Goal (LTG) Pt to tolerate sitting in her car for longer than 35 minutes without increased pain to enable her to tolerate drive from [employer] with out worsening symptoms LTG Duration 11/13/22 One Impairment Pt does not have an appropriate Home Exercise Program Short Term Goal (STG) Pt to be independent and compliant with an appropriate HEP STG Duration 10/14/22 Assessment Summary Assessment Pt presents with signs and symptoms consistent with vague low back/posterior hip pain and increased tone. Overall has already shown good improvement since she was initially seen by her PCP, and reports more severe symptoms have largely been eliminated. Does still note general feeling of tightness in right hip and low back. Will likely benefit from instruction in HEP focusing on hip/core strengthening and stretching, as well as body mechanics for lifting, in hopes to prevent further flare-ups of back pain . Physical Therapy Plan Frequency and Duration Frequency of Treatment 1-2x/week Plan of Care Start Date 09/13/22 Plan of Care End Date 11/13/22 Therapeutic Interventions Therapeutic Interventions Home Exercise Program,Joint Mobilizations,Manual Therapy, Neuromuscular Re-education, Patient/Caregiver Education, Self-Care/Home Management,Soft Tissue Mobilization, Therapeutic Activities, Therapeutic Exercises Modalities Cold Pack/Ice Massage,Hot Packs Next Visit Focus/Plan Next Note Type Treatment Note Next Visit Plan Core and hip strengthening, flexibility, STM Plan of Care Dates Plan of Care Start Date 09/13/22 Plan of Care End Date 11/13/22 Electronically Signed by: Bharat Arnold, PT 09/13/22 1640 If you are in agreement with this Plan of Care, please return a signed and dated copy. I have reviewed this Plan of Care and certify that the skilled therapy services above are required to meet the patient?s needs. Physician Signature Date Printed Name and Credentials Clinical Instructor Signature Printed Name and Credentials
--- NOTE | 2022-09-15 14:33 | PT.OTN ---
Current Diagnoses Sciatica, unspecified side (09/15/22) Low back pain, unspecified (09/15/22) Physical Therapy Treatment Note PT-OP-A Visit Information Start: 09/13/22 16:01 Freq: Status: Active Protocol: Document 09/15/22 13:45 DCW (Rec: 09/15/22 14:33 DCW [id number]) Out-Patient Physical Therapy Visit Information Visit Information Visit Type Treatment Note Visit Start Time 13:45 Visit Stop Time 14:30 Total Visit Minutes 45 Visit Number 2 Number of ORDER BOOKER Visits 0 Evaluation Information Evaluation Date 09/13/22 PT-OP-B Current Condition Start: 09/13/22 16:01 Freq: Status: Active Protocol: Document 09/13/22 13:45 DCW (Rec: 09/13/22 16:27 DCW [id number]) Current Condition History of Current Condition Onset Date 5-6 year history Current Complaints Low back pain, occasional radiating symptoms History of Current Condition Pt is a 41 year old female presenting with complaints of ongoing low back pain which has been off and on over the last 5-6 years. Unclear what was the initial cause, she thinks it may have been attempting to lift something, but she is unsure. In the past , pt notes she has had a flare -up if she moved wrong or twisted in some way, her back would bother her for 2-3 days, and then she would feel better. This most recent flare -up, however, lasted for multiple months, although she admits that she has been feeling much better recently, although there is still some lingering pain. 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 Noted that recently, when she has been sore, she had a very difficult time driving 25 minutes from [employer] to [employer]. Pt has been working out more recently, along with yoga, and she feels this has helped. Prior Treatments and Tests Pt reports she has not had any imaging yet at this time. PT-OP-C Subjective Start: 09/13/22 16:01 Freq: Status: Active Protocol: Document 09/15/22 13:45 DCW (Rec: 09/15/22 14:33 DCW [id number]) OP-PT Subjective Patient Comments Patient Comments It's about the same, it feels pretty good overall, but it still catches me some times. PT-OP-F Manual Assessment Start: 09/13/22 16:01 Freq: Status: Active Protocol: Document 09/13/22 13:45 DCW (Rec: 09/13/22 16:27 DCW [id number]) Manual Assessments Soft Tissue Assessment Soft Tissue Mobility Assessment Moderate tone in right lumbar paraspinals, QL, and piriformis. Complaints of non- specific muscle tightness with most passive movement of right LE, pt unable to define what or where she felt was tight. PT-OP-K Range of Motion Start: 09/13/22 16:01 Freq: Status: Active Protocol: Document 09/13/22 13:45 DCW (Rec: 09/13/22 16:27 DCW [id number]) Lumbar Spine Range of Motion Lumbar Spine Active Degrees Testing Position Standing Flexion 70 Extension 30 Lateral Flexion Left 46 Lateral Flexion Right 45 Comments Lateral flexion measured in cm from floor to fingertips Pt noted tightness in low back at end-range flexion PT-OP-L Special Tests Start: 09/13/22 16:01 Freq: Status: Active Protocol: Document 09/13/22 13:45 DCW (Rec: 09/13/22 16:27 DCW [id number]) Special Tests Lumbar Spine Special Tests Manual Traction Test Results Tightness in R lumbar Slump Test Results Tightness in R lumbar Vertical Spine Loading Test Results Tightness in R lumbar Reno Test Results Tightness in R lumbar Straight Leg Raise Test Results Tightness in R lumbar Standing Flexion Test Results Tightness in R lumbar Compression Test Results Tightness in R lumbar A-P Shearing Test Results Negative Hip Special Tests Piriformis Test Results Tightness in R posterior hip WARREN Test Results Tightness in R lumbar PT-OP-Q Treatments Start: 09/13/22 16:01 Freq: Status: Active Protocol: Document 09/15/22 13:45 DCW (Rec: 09/15/22 14:33 DCW [id number]) Therapeutic Exercises Supine Exercises Hamstring Stretch Supine Exercise Name HS stretch Side bilateral Piriformis stretch Supine Exercise Name Opposite knee to shoulder Side bilateral Standing Exercises BOSU Lunge Standing Exercise Name BOSU Lunge Side bilateral Hip Extension Standing Exercise Name Hip Extension Side bilateral Resistance Green Pallof Press Standing Exercise Name Pallof Press Side bilateral Resistance Lv 3 Other Exercises Resisted ambulation Other Exercise Name Resisted side-stepping Resistance Green Manual Therapy Treatment Soft Tissue Mobilization Lumbar Paraspinals Body Location Lumbar paraspinals Mobilization Type Sustained Pressure,Trigger Point Release Intensity/Depth Moderate Body Position Prone Joint Mobilizations Lumbar Joint L1-5 Direction P->A Grade III Body Position Prone Manual Traction Lumbar Details Short-axis Lumbar /c strap Body Position Hooklying PT-OP-T Assessment and Plan Start: 09/13/22 16:01 Freq: Status: Active Protocol: Document 09/15/22 13:45 DCW (Rec: 09/15/22 14:33 DCW [id number]) Physical Therapy Assessment Impairments Impairments Activity Tolerance,Functional Activities,Functional Mobility ,Pain,Soft Tissue Mobility, Tone Goals Two Impairment Pt experiences increased pain with extended sitting or standing Roofer Assistant Goal (LTG) Pt to tolerate sitting in her car for longer than 35 minutes without increased pain to enable her to tolerate drive from [employer] with out worsening symptoms LTG Duration 11/13/22 One Impairment Pt does not have an appropriate Home Exercise Program Short Term Goal (STG) Pt to be independent and compliant with an appropriate HEP STG Duration 10/14/22 Assessment Summary Assessment Pt tolerated treatment very well, did have some increased tone along right paraspinals, but responded well to STM and joint mobilizations. Pt notes muscle soreness/fatigue with exercises, but no actual increased pain. Physical Therapy Plan Frequency and Duration Frequency of Treatment 1-2x/week Plan of Care Start Date 09/13/22 Plan of Care End Date 11/13/22 Therapeutic Interventions Therapeutic Interventions Home Exercise Program,Joint Mobilizations,Manual Therapy, Neuromuscular Re-education, Patient/Caregiver Education, Self-Care/Home Management,Soft Tissue Mobilization, Therapeutic Activities, Therapeutic Exercises Modalities Cold Pack/Ice Massage,Hot Packs Next Visit Focus/Plan Next Note Type Treatment Note Next Visit Plan Core and hip strengthening, flexibility, STM
--- NOTE | 2022-09-18 14:36 | PT.OTN ---
Current Diagnoses Sciatica, unspecified side (09/18/22) Low back pain, unspecified (09/18/22) Physical Therapy Treatment Note PT-OP-A Visit Information Start: 09/13/22 16:01 Freq: Status: Active Protocol: Document 09/18/22 13:52 SP (Rec: 09/18/22 14:45 SP [id number]) Out-Patient Physical Therapy Visit Information Visit Information Visit Type Treatment Note Visit Start Time 13:52 Visit Stop Time 14:36 Total Visit Minutes 44 Visit Number 3 Number of ENVIRONMENTAL SERVICES TECH Visits 1 Evaluation Information Evaluation Date 09/13/22 PT-OP-B Current Condition Start: 09/13/22 16:01 Freq: Status: Active Protocol: Document 09/13/22 13:45 DCW (Rec: 09/13/22 16:27 DCW [id number]) Current Condition History of Current Condition Onset Date 5-6 year history Current Complaints Low back pain, occasional radiating symptoms History of Current Condition Pt is a 41 year old female presenting with complaints of ongoing low back pain which has been off and on over the last 5-6 years. Unclear what was the initial cause, she thinks it may have been attempting to lift something, but she is unsure. In the past , pt notes she has had a flare -up if she moved wrong or twisted in some way, her back would bother her for 2-3 days, and then she would feel better. This most recent flare -up, however, lasted for multiple months, although she admits that she has been feeling much better recently, although there is still some lingering pain. 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 Noted that recently, when she has been sore, she had a very difficult time driving 25 minutes from [employer] to [employer]. Pt has been working out more recently, along with yoga, and she feels this has helped. Prior Treatments and Tests Pt reports she has not had any imaging yet at this time. PT-OP-C Subjective Start: 09/13/22 16:01 Freq: Status: Active Protocol: Document 09/18/22 13:52 SP (Rec: 09/18/22 14:45 SP [id number]) OP-PT Subjective Patient Comments Patient Comments Pt reports hurting R LB into glut region PT-OP-F Manual Assessment Start: 09/13/22 16:01 Freq: Status: Active Protocol: Document 09/13/22 13:45 DCW (Rec: 09/13/22 16:27 DCW [id number]) Manual Assessments Soft Tissue Assessment Soft Tissue Mobility Assessment Moderate tone in right lumbar paraspinals, QL, and piriformis. Complaints of non- specific muscle tightness with most passive movement of right LE, pt unable to define what or where she felt was tight. PT-OP-K Range of Motion Start: 09/13/22 16:01 Freq: Status: Active Protocol: Document 09/13/22 13:45 DCW (Rec: 09/13/22 16:27 DCW [id number]) Lumbar Spine Range of Motion Lumbar Spine Active Degrees Testing Position Standing Flexion 70 Extension 30 Lateral Flexion Left 46 Lateral Flexion Right 45 Comments Lateral flexion measured in cm from floor to fingertips Pt noted tightness in low back at end-range flexion PT-OP-L Special Tests Start: 09/13/22 16:01 Freq: Status: Active Protocol: Document 09/13/22 13:45 DCW (Rec: 09/13/22 16:27 DCW [id number]) Special Tests Lumbar Spine Special Tests Manual Traction Test Results Tightness in R lumbar Slump Test Results Tightness in R lumbar Vertical Spine Loading Test Results Tightness in R lumbar Reno Test Results Tightness in R lumbar Straight Leg Raise Test Results Tightness in R lumbar Standing Flexion Test Results Tightness in R lumbar Compression Test Results Tightness in R lumbar A-P Shearing Test Results Negative Hip Special Tests Piriformis Test Results Tightness in R posterior hip WARREN Test Results Tightness in R lumbar PT-OP-Q Treatments Start: 09/13/22 16:01 Freq: Status: Active Protocol: Document 09/18/22 13:52 SP (Rec: 09/18/22 14:45 SP [id number]) Therapeutic Exercises Supine Exercises Hamstring Stretch Supine Exercise Name HS stretch: sustained stretch with and without AP Side bilateral Reps/Minutes 1 min Comments cued grasp behind thigh, lift lower leg- good feedback Piriformis stretch Supine Exercise Name Opposite knee to shoulder Side bilateral Reps/Minutes 60 LTR Supine Exercise Name LTR Side bilateral Resistance AROM Equipment Used LEs over 55cm tball> 65cm tball (has at home) Reps/Minutes 2 min Comments pause stretch, cued slow pace core fac stability PPT /c SLR Supine Exercise Name PPT /c TrA, SLR- Comments 09/18/22 discussed doing well at home PPT /c Marching Supine Exercise Name PPT /c TrA, marching Comments 09/18/22 discussed doing well at home PPT Supine Exercise Name PPT /c TrA contraction Comments 09/18/22 discussed doing well at home Sitting Exercises stretch Sitting Exercise Name end tx: HS, piriformis stretch Side right Reps/Minutes 30 each Comments good feedback stretch end tx Standing Exercises BOSU Lunge Standing Exercise Name BOSU Lunge Side bilateral Equipment Used rail near if needed Reps/Minutes x10 Comments cued slow con/ecc for stability Hip Extension Standing Exercise Name Hip Extension- added to HEP Side bilateral Resistance Green TB (provided TB #3 home: at mid [place]) Reps/Minutes 2x10 Comments cued PPT, TA neutral pelvis Pallof Press Standing Exercise Name added to HEP Side bilateral Resistance Lv 3 Reps/Minutes 10x2 Comments cued TA/ PPT Other Exercises self STMs Other Exercise Name shown/performed self massage: glut, ES Side right Equipment Used tennis ball against wall Reps/Minutes 30 sec Comments good feedback massage can do at home Resisted ambulation Other Exercise Name Resisted side-stepping: added for home Resistance Green TB (TB #3>#2 at mid [place] for home) Equipment Used rail PRN Reps/Minutes 10 ft x2 laps (dec #2 less tightness in R glut) Comments cued PPT, TA slow eccentric ft clearance Manual Therapy Treatment Soft Tissue Mobilization Lumbar Paraspinals Body Location Lumbar paraspinals, GLut max, piriform\is Mobilization Type Sustained Pressure,Trigger Point Release Intensity/Depth Moderate Body Position Prone Comments MFR, Sustained pressure piriformis w/ PROM hip IR/ ER- good feedback less tightness Manual Traction R hip Details long axis pull Body Position Supine Comments 20SH x3, ed can assist . PT-OP-T Assessment and Plan Start: 09/13/22 16:01 Freq: Status: Active Protocol: Document 09/18/22 13:52 SP (Rec: 09/18/22 14:45 SP [id number]) Physical Therapy Assessment Goals Two Impairment Pt experiences increased pain with extended sitting or standing Laundry Or Dry Cleaners Counter Clerk Goal (LTG) Pt to tolerate sitting in her car for longer than 35 minutes without increased pain to enable her to tolerate drive from [employer] with out worsening symptoms LTG Duration 11/13/22 One Impairment Pt does not have an appropriate Home Exercise Program Short Term Goal (STG) Pt to be independent and compliant with an appropriate HEP 09/18/22: HEP review: supine: LTR, HS & piriformis stretch, added resisted paloff press, hip ext, band walk laterally for home w/ HOs. STG Duration 10/14/22 progressing 09/18/22 Assessment Summary Assessment Pt good feedback to manual and understanding/performance how can do at home. Good carrover stretching, cue x1 for set up . Added palloff press, hip ext , band walk to home HEP with HO. Pt states R hip still little tight end tx, responded well to seated stretching. Physical Therapy Plan Frequency and Duration Frequency of Treatment 1-2x/week Plan of Care Start Date 09/13/22 Plan of Care End Date 11/13/22 Therapeutic Interventions Therapeutic Interventions Home Exercise Program,Joint Mobilizations,Manual Therapy, Neuromuscular Re-education, Patient/Caregiver Education, Self-Care/Home Management,Soft Tissue Mobilization, Therapeutic Activities, Therapeutic Exercises Modalities Cold Pack/Ice Massage,Hot Packs Next Visit Focus/Plan Next Note Type Treatment Note Next Visit Plan REview HEP ther ex/ stetching. POC: Core and hip strengthening, flexibility, STM
--- NOTE | 2022-09-21 14:30 | PT.OTN ---
Current Diagnoses Sciatica, unspecified side (09/21/22) Low back pain, unspecified (09/21/22) Physical Therapy Treatment Note PT-OP-A Visit Information Start: 09/13/22 16:01 Freq: Status: Active Protocol: Document 09/21/22 14:30 DLM (Rec: 09/21/22 17:03 DLM [id number]) Out-Patient Physical Therapy Visit Information Visit Information Visit Type Treatment Note Visit Start Time 13:45 Visit Stop Time 14:30 Total Visit Minutes 45 Visit Number 4 Number of CAR MANAGER Visits 0 Evaluation Information Evaluation Date 09/13/22 PT-OP-B Current Condition Start: 09/13/22 16:01 Freq: Status: Active Protocol: Document 09/13/22 13:45 DCW (Rec: 09/13/22 16:27 DCW [id number]) Current Condition History of Current Condition Onset Date 5-6 year history Current Complaints Low back pain, occasional radiating symptoms History of Current Condition Pt is a 41 year old female presenting with complaints of ongoing low back pain which has been off and on over the last 5-6 years. Unclear what was the initial cause, she thinks it may have been attempting to lift something, but she is unsure. In the past , pt notes she has had a flare -up if she moved wrong or twisted in some way, her back would bother her for 2-3 days, and then she would feel better. This most recent flare -up, however, lasted for multiple months, although she admits that she has been feeling much better recently, although there is still some lingering pain. 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 Noted that recently, when she has been sore, she had a very difficult time driving 25 minutes from [employer] to [employer]. Pt has been working out more recently, along with yoga, and she feels this has helped. Prior Treatments and Tests Pt reports she has not had any imaging yet at this time. PT-OP-C Subjective Start: 09/13/22 16:01 Freq: Status: Active Protocol: Document 09/21/22 14:30 DLM (Rec: 09/21/22 17:03 DLM [id number]) OP-PT Subjective Patient Comments Patient Comments She reports the pain is better but she is still tight on the right side. She was sore after doing the resisted walking. Patient Reported Progress Improving PT-OP-F Manual Assessment Start: 09/13/22 16:01 Freq: Status: Active Protocol: Document 09/13/22 13:45 DCW (Rec: 09/13/22 16:27 DCW [id number]) Manual Assessments Soft Tissue Assessment Soft Tissue Mobility Assessment Moderate tone in right lumbar paraspinals, QL, and piriformis. Complaints of non- specific muscle tightness with most passive movement of right LE, pt unable to define what or where she felt was tight. PT-OP-K Range of Motion Start: 09/13/22 16:01 Freq: Status: Active Protocol: Document 09/13/22 13:45 DCW (Rec: 09/13/22 16:27 DCW [id number]) Lumbar Spine Range of Motion Lumbar Spine Active Degrees Testing Position Standing Flexion 70 Extension 30 Lateral Flexion Left 46 Lateral Flexion Right 45 Comments Lateral flexion measured in cm from floor to fingertips Pt noted tightness in low back at end-range flexion PT-OP-L Special Tests Start: 09/13/22 16:01 Freq: Status: Active Protocol: Document 09/13/22 13:45 DCW (Rec: 09/13/22 16:27 DCW [id number]) Special Tests Lumbar Spine Special Tests Manual Traction Test Results Tightness in R lumbar Slump Test Results Tightness in R lumbar Vertical Spine Loading Test Results Tightness in R lumbar Reno Test Results Tightness in R lumbar Straight Leg Raise Test Results Tightness in R lumbar Standing Flexion Test Results Tightness in R lumbar Compression Test Results Tightness in R lumbar A-P Shearing Test Results Negative Hip Special Tests Piriformis Test Results Tightness in R posterior hip WARREN Test Results Tightness in R lumbar PT-OP-Q Treatments Start: 09/13/22 16:01 Freq: Status: Active Protocol: Document 09/21/22 14:30 DLM (Rec: 09/21/22 17:03 DLM [id number]) Therapeutic Exercises Supine Exercises Hamstring Stretch Supine Exercise Name HS stretch: sustained stretch with and without AP Side bilateral Reps/Minutes 1 min Comments cued grasp behind thigh, lift lower leg- good feedback Piriformis stretch Supine Exercise Name Opposite knee to shoulder Side bilateral Reps/Minutes 60 LTR Supine Exercise Name LTR Side bilateral Resistance AROM Reps/Minutes 2 min Comments pain on right side PPT /c SLR Supine Exercise Name PPT /c TrA, SLR- PPT /c Marching Supine Exercise Name PPT /c TrA, marching PPT Supine Exercise Name PPT /c TrA contraction Manual Therapy Treatment Soft Tissue Mobilization Lumbar Paraspinals Body Location Lumbar paraspinals, GLut max, piriform\is Mobilization Type Myofascial Release,Sustained Pressure,Trigger Point Release Intensity/Depth Moderate Body Position Prone Self-Care/Home Management Treatment Education Patient Education Body Mechanics,Home Exercise Program,Joint Protection,Pain Management Other Education initiated review of her yoga and weight training exercises that may be contributing to her back pain. Pt describes lifts as increasing her pain if she holds more than 7 pounds in each hand. Requested pt stop all exercises at home that cause back pain. Will need further review. PT-OP-T Assessment and Plan Start: 09/13/22 16:01 Freq: Status: Active Protocol: Document 09/21/22 14:30 DLM (Rec: 09/21/22 17:03 DLM [id number]) Physical Therapy Assessment Progress Towards Goals Progress Towards Goals Progressing Toward Goals Assessment Summary Assessment She reports having the most pain with rotational movements today. She needs further review of her yoga and weight training exercises at home to manage aggravating factors. Her soft tissue tightness improved with manual treatment . Pt is using the ball at home for self treatment of right glut area which appears to be improving the tightness in that area. Pt reports her pain is improving over-all. Physical Therapy Plan Frequency and Duration Frequency of Treatment 1-2x/week Plan of Care Start Date 09/13/22 Plan of Care End Date 11/13/22 Next Visit Focus/Plan Next Note Type Treatment Note Next Visit Plan advance core strengthening while monitoring pain
--- NOTE | 2022-09-25 14:30 | PT.OTN ---
Addendum entered and electronically signed by Nisha Mcmahan PTA 09/25/22 16:10: Initiate prone over tball Is, Ys, Ts, seated september, resisted shld ext, plank off knees. Original Note: Current Diagnoses Sciatica, unspecified side (09/25/22) Low back pain, unspecified (09/25/22) Physical Therapy Treatment Note PT-OP-A Visit Information Start: 09/13/22 16:01 Freq: Status: Active Protocol: Document 09/25/22 13:48 SP (Rec: 09/25/22 14:32 SP [id number]) Out-Patient Physical Therapy Visit Information Visit Information Visit Type Treatment Note Visit Start Time 13:48 Visit Stop Time 14:30 Total Visit Minutes 42 Visit Number 5 Number of PR INTERNSHIP Visits 1 Evaluation Information Evaluation Date 09/13/22 PT-OP-B Current Condition Start: 09/13/22 16:01 Freq: Status: Active Protocol: Document 09/13/22 13:45 DCW (Rec: 09/13/22 16:27 DCW [id number]) Current Condition History of Current Condition Onset Date 5-6 year history Current Complaints Low back pain, occasional radiating symptoms History of Current Condition Pt is a 41 year old female presenting with complaints of ongoing low back pain which has been off and on over the last 5-6 years. Unclear what was the initial cause, she thinks it may have been attempting to lift something, but she is unsure. In the past , pt notes she has had a flare -up if she moved wrong or twisted in some way, her back would bother her for 2-3 days, and then she would feel better. This most recent flare -up, however, lasted for multiple months, although she admits that she has been feeling much better recently, although there is still some lingering pain. 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 Noted that recently, when she has been sore, she had a very difficult time driving 25 minutes from [place] to [place]. Pt has been working out more recently, along with yoga, and she feels this has helped. Prior Treatments and Tests Pt reports she has not had any imaging yet at this time. PT-OP-C Subjective Start: 09/13/22 16:01 Freq: Status: Active Protocol: Document 09/25/22 13:48 SP (Rec: 09/25/22 14:32 SP [id number]) OP-PT Subjective Patient Comments Patient Comments Pt reports has lessened wts from 15# BUE to 8# BUE lift and being aware of proper form with her video yoga exercises. PT-OP-F Manual Assessment Start: 09/13/22 16:01 Freq: Status: Active Protocol: Document 09/13/22 13:45 DCW (Rec: 09/13/22 16:27 DCW [id number]) Manual Assessments Soft Tissue Assessment Soft Tissue Mobility Assessment Moderate tone in right lumbar paraspinals, QL, and piriformis. Complaints of non- specific muscle tightness with most passive movement of right LE, pt unable to define what or where she felt was tight. PT-OP-K Range of Motion Start: 09/13/22 16:01 Freq: Status: Active Protocol: Document 09/13/22 13:45 DCW (Rec: 09/13/22 16:27 DCW [id number]) Lumbar Spine Range of Motion Lumbar Spine Active Degrees Testing Position Standing Flexion 70 Extension 30 Lateral Flexion Left 46 Lateral Flexion Right 45 Comments Lateral flexion measured in cm from floor to fingertips Pt noted tightness in low back at end-range flexion PT-OP-L Special Tests Start: 09/13/22 16:01 Freq: Status: Active Protocol: Document 09/13/22 13:45 DCW (Rec: 09/13/22 16:27 DCW [id number]) Special Tests Lumbar Spine Special Tests Manual Traction Test Results Tightness in R lumbar Slump Test Results Tightness in R lumbar Vertical Spine Loading Test Results Tightness in R lumbar Reno Test Results Tightness in R lumbar Straight Leg Raise Test Results Tightness in R lumbar Standing Flexion Test Results Tightness in R lumbar Compression Test Results Tightness in R lumbar A-P Shearing Test Results Negative Hip Special Tests Piriformis Test Results Tightness in R posterior hip WARREN Test Results Tightness in R lumbar PT-OP-Q Treatments Start: 09/13/22 16:01 Freq: Status: Active Protocol: Document 09/25/22 13:48 SP (Rec: 09/25/22 14:32 SP [id number]) Therapeutic Exercises Standing Exercises lift Standing Exercise Name ed proper form- eccentric chair tap Resistance 7# DB (BUE) Equipment Used elevated table 20 Reps/Minutes x3 reps Comments cued PPT TA, scap retraction, good CS alignment- painfree Other Exercises 1/2 kneel hip flexor stretch Other Exercise Name added to HEP Equipment Used knee on pillow floor (R>L), contact table support Reps/Minutes 2 reps 30SH Comments cued neutral PPT LS then wt shift forward front leg, good hip flex stretch quadruped Other Exercise Name 1. cat camel & child's pose/ thread needle 2. UE then LE ext 3. tail wag Side bilateral Reps/Minutes 5reps each, stretch 30 Comments good breath, occasional cues neutral LS- assess if good form for HEP nexttx Manual Therapy Treatment Soft Tissue Mobilization Lumbar Paraspinals Body Location Lumbar paraspinals, GLut med Mobilization Type Myofascial Release,Sustained Pressure,Trigger Point Release Intensity/Depth Moderate Body Position Prone Manual Traction R hip Details long axis pull Body Position Supine Reps/Duration 10 SH x3 Comments 20SH x3-manual and ed use Blue #4 TB self strap anchored in door- good response self application. (supine floor on yoga mat, see HO provided for home application- good response during tx) PT-OP-T Assessment and Plan Start: 09/13/22 16:01 Freq: Status: Active Protocol: Document 09/25/22 13:48 SP (Rec: 09/25/22 14:32 SP [id number]) Physical Therapy Assessment Goals Two Impairment Pt experiences increased pain with extended sitting or standing Budget Engineer Goal (LTG) Pt to tolerate sitting in her car for longer than 35 minutes without increased pain to enable her to tolerate drive from [place] with out worsening symptoms LTG Duration 11/13/22 One Impairment Pt does not have an appropriate Home Exercise Program Short Term Goal (STG) Pt to be independent and compliant with an appropriate HEP 09/18/22: HEP review: supine: LTR, HS & piriformis stretch, added resisted paloff press, hip ext, band walk laterally for home w/ HOs. STG Duration 10/14/22 progressing 09/18/22 Assessment Summary Assessment Pt Physical Therapy Plan Frequency and Duration Frequency of Treatment 1-2x/week Plan of Care Start Date 09/13/22 Plan of Care End Date 11/13/22 Therapeutic Interventions Therapeutic Interventions Home Exercise Program,Joint Mobilizations,Manual Therapy, Neuromuscular Re-education, Patient/Caregiver Education, Self-Care/Home Management,Soft Tissue Mobilization, Therapeutic Activities, Therapeutic Exercises Modalities Cold Pack/Ice Massage,Hot Packs Next Visit Focus/Plan Next Note Type Treatment Note Next Visit Plan Recheck: quadruped stretching/ ROM, bird dog, check how respond home self long axis pull. POC: advance core strengthening while monitoring pain
--- NOTE | 2022-09-28 14:30 | PT.OTN ---
Current Diagnoses Sciatica, unspecified side (09/28/22) Low back pain, unspecified (09/28/22) Physical Therapy Treatment Note PT-OP-A Visit Information Start: 09/13/22 16:01 Freq: Status: Active Protocol: Document 09/28/22 13:45 DCW (Rec: 09/28/22 14:30 DCW [id number]) Out-Patient Physical Therapy Visit Information Visit Information Visit Type Treatment Note Visit Start Time 13:45 Visit Stop Time 14:30 Total Visit Minutes 45 Visit Number 6 Number of GAS APPLIANCE SERVICER Visits 0 Evaluation Information Evaluation Date 09/13/22 PT-OP-B Current Condition Start: 09/13/22 16:01 Freq: Status: Active Protocol: Document 09/13/22 13:45 DCW (Rec: 09/13/22 16:27 DCW [id number]) Current Condition History of Current Condition Onset Date 5-6 year history Current Complaints Low back pain, occasional radiating symptoms History of Current Condition Pt is a 41 year old female presenting with complaints of ongoing low back pain which has been off and on over the last 5-6 years. Unclear what was the initial cause, she thinks it may have been attempting to lift something, but she is unsure. In the past , pt notes she has had a flare -up if she moved wrong or twisted in some way, her back would bother her for 2-3 days, and then she would feel better. This most recent flare -up, however, lasted for multiple months, although she admits that she has been feeling much better recently, although there is still some lingering pain. 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 Noted that recently, when she has been sore, she had a very difficult time driving 25 minutes from [employer] to [employer]. Pt has been working out more recently, along with yoga, and she feels this has helped. Prior Treatments and Tests Pt reports she has not had any imaging yet at this time. PT-OP-C Subjective Start: 09/13/22 16:01 Freq: Status: Active Protocol: Document 09/28/22 13:45 DCW (Rec: 09/28/22 14:30 DCW [id number]) OP-PT Subjective Patient Comments Patient Comments Pt reports her back feels about the same, but does note that she has been more active the past few weeks getting the restaurant she works at ready for re-opening. PT-OP-F Manual Assessment Start: 09/13/22 16:01 Freq: Status: Active Protocol: Document 09/13/22 13:45 DCW (Rec: 09/13/22 16:27 DCW [id number]) Manual Assessments Soft Tissue Assessment Soft Tissue Mobility Assessment Moderate tone in right lumbar paraspinals, QL, and piriformis. Complaints of non- specific muscle tightness with most passive movement of right LE, pt unable to define what or where she felt was tight. PT-OP-K Range of Motion Start: 09/13/22 16:01 Freq: Status: Active Protocol: Document 09/13/22 13:45 DCW (Rec: 09/13/22 16:27 DCW [id number]) Lumbar Spine Range of Motion Lumbar Spine Active Degrees Testing Position Standing Flexion 70 Extension 30 Lateral Flexion Left 46 Lateral Flexion Right 45 Comments Lateral flexion measured in cm from floor to fingertips Pt noted tightness in low back at end-range flexion PT-OP-L Special Tests Start: 09/13/22 16:01 Freq: Status: Active Protocol: Document 09/13/22 13:45 DCW (Rec: 09/13/22 16:27 DCW [id number]) Special Tests Lumbar Spine Special Tests Manual Traction Test Results Tightness in R lumbar Slump Test Results Tightness in R lumbar Vertical Spine Loading Test Results Tightness in R lumbar Reno Test Results Tightness in R lumbar Straight Leg Raise Test Results Tightness in R lumbar Standing Flexion Test Results Tightness in R lumbar Compression Test Results Tightness in R lumbar A-P Shearing Test Results Negative Hip Special Tests Piriformis Test Results Tightness in R posterior hip WARREN Test Results Tightness in R lumbar PT-OP-Q Treatments Start: 09/13/22 16:01 Freq: Status: Active Protocol: Document 09/28/22 13:45 DCW (Rec: 09/28/22 14:30 DCW [id number]) Gym Equipment Shuttle Balance Red Details WBOS, Staggered, Lateral weight shift Therapeutic Exercises Supine Exercises Hamstring Stretch Supine Exercise Name HS stretch: sustained stretch with and without AP Side bilateral Piriformis stretch Supine Exercise Name Opposite knee to shoulder Side bilateral Reps/Minutes 60 Sidelying Exercises Resisted hip hiking Sidelying Exercise Name Manual resisted hip hiking Side bilateral Standing Exercises BOSU Lunge Standing Exercise Name BOSU Lunge Side bilateral Equipment Used rail near if needed Reps/Minutes x10 Comments cued slow con/ecc for stability Hip Extension Standing Exercise Name Hip Extension Side bilateral Resistance Green TB (provided TB Reps/Minutes 2x10 Comments cued PPT, TA neutral pelvis Other Exercises Resisted ambulation Other Exercise Name Resisted side-stepping Resistance Green TB Equipment Used rail PRN Reps/Minutes 10 ft x2 laps Comments cued PPT, TA slow eccentric ft clearance Manual Therapy Treatment Soft Tissue Mobilization Lumbar Paraspinals Body Location Lumbar paraspinals, Glut med Mobilization Type Myofascial Release,Sustained Pressure,Trigger Point Release Intensity/Depth Moderate Body Position Prone Joint Mobilizations Lumbar Joint L1-5 Direction P->A Grade III Body Position Prone Manual Traction R hip Details long axis pull Body Position Supine Reps/Duration 10 SH x3 PT-OP-T Assessment and Plan Start: 09/13/22 16:01 Freq: Status: Active Protocol: Document 09/28/22 13:45 DCW (Rec: 09/28/22 14:30 DCW [id number]) Physical Therapy Assessment Impairments Impairments Activity Tolerance,Functional Activities,Functional Mobility ,Pain,Soft Tissue Mobility, Tone Goals Two Impairment Pt experiences increased pain with extended sitting or standing Fpc Goal (LTG) Pt to tolerate sitting in her car for longer than 35 minutes without increased pain to enable her to tolerate drive from [employer] with out worsening symptoms LTG Duration 11/13/22 One Impairment Pt does not have an appropriate Home Exercise Program Short Term Goal (STG) Pt to be independent and compliant with an appropriate HEP 09/18/22: HEP review: supine: LTR, HS & piriformis stretch, added resisted paloff press, hip ext, band walk laterally for home w/ HOs. 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 Pt should continue to benefit from skilled therapeutic intervention to improve lumbar mobility and muscle tone, as well as increase core strength. Physical Therapy Plan Frequency and Duration Frequency of Treatment 1-2x/week Plan of Care Start Date 09/13/22 Plan of Care End Date 11/13/22 Therapeutic Interventions Therapeutic Interventions Home Exercise Program,Joint Mobilizations,Manual Therapy, Neuromuscular Re-education, Patient/Caregiver Education, Self-Care/Home Management,Soft Tissue Mobilization, Therapeutic Activities, Therapeutic Exercises Modalities Cold Pack/Ice Massage,Hot Packs Next Visit Focus/Plan Next Note Type Treatment Note Next Visit Plan Recheck: quadruped stretching/ ROM, bird dog, POC: advance core strengthening while monitoring pain
--- NOTE | 2022-10-05 14:30 | PT.OTN ---
Current Diagnoses Sciatica, unspecified side (10/05/22) Low back pain, unspecified (10/05/22) Physical Therapy Treatment Note PT-OP-A Visit Information Start: 09/13/22 16:01 Freq: Status: Active Protocol: Document 10/05/22 13:45 DCW (Rec: 10/05/22 14:30 DCW [id number]) Out-Patient Physical Therapy Visit Information Visit Information Visit Type Treatment Note Visit Start Time 13:45 Visit Stop Time 14:30 Total Visit Minutes 45 Visit Number 7 Number of AGRICULTURAL EQUIPMENT SALESPERSON Visits 0 Evaluation Information Evaluation Date 09/13/22 PT-OP-B Current Condition Start: 09/13/22 16:01 Freq: Status: Active Protocol: Document 09/13/22 13:45 DCW (Rec: 09/13/22 16:27 DCW [id number]) Current Condition History of Current Condition Onset Date 5-6 year history Current Complaints Low back pain, occasional radiating symptoms History of Current Condition Pt is a 41 year old female presenting with complaints of ongoing low back pain which has been off and on over the last 5-6 years. Unclear what was the initial cause, she thinks it may have been attempting to lift something, but she is unsure. In the past , pt notes she has had a flare -up if she moved wrong or twisted in some way, her back would bother her for 2-3 days, and then she would feel better. This most recent flare -up, however, lasted for multiple months, although she admits that she has been feeling much better recently, although there is still some lingering pain. 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 Noted that recently, when she has been sore, she had a very difficult time driving 25 minutes from [facility] to [employer]. Pt has been working out more recently, along with yoga, and she feels this has helped. Prior Treatments and Tests Pt reports she has not had any imaging yet at this time. PT-OP-C Subjective Start: 09/13/22 16:01 Freq: Status: Active Protocol: Document 10/05/22 13:45 DCW (Rec: 10/05/22 14:30 DCW [id number]) OP-PT Subjective Patient Comments Patient Comments Pt reports she spent a lot of time hiking this past weekend, and felt a little tighter the following day, but it is back to normal now. PT-OP-F Manual Assessment Start: 09/13/22 16:01 Freq: Status: Active Protocol: Document 09/13/22 13:45 DCW (Rec: 09/13/22 16:27 DCW [id number]) Manual Assessments Soft Tissue Assessment Soft Tissue Mobility Assessment Moderate tone in right lumbar paraspinals, QL, and piriformis. Complaints of non- specific muscle tightness with most passive movement of right LE, pt unable to define what or where she felt was tight. PT-OP-K Range of Motion Start: 09/13/22 16:01 Freq: Status: Active Protocol: Document 09/13/22 13:45 DCW (Rec: 09/13/22 16:27 DCW [id number]) Lumbar Spine Range of Motion Lumbar Spine Active Degrees Testing Position Standing Flexion 70 Extension 30 Lateral Flexion Left 46 Lateral Flexion Right 45 Comments Lateral flexion measured in cm from floor to fingertips Pt noted tightness in low back at end-range flexion PT-OP-L Special Tests Start: 09/13/22 16:01 Freq: Status: Active Protocol: Document 09/13/22 13:45 DCW (Rec: 09/13/22 16:27 DCW [id number]) Special Tests Lumbar Spine Special Tests Manual Traction Test Results Tightness in R lumbar Slump Test Results Tightness in R lumbar Vertical Spine Loading Test Results Tightness in R lumbar Reno Test Results Tightness in R lumbar Straight Leg Raise Test Results Tightness in R lumbar Standing Flexion Test Results Tightness in R lumbar Compression Test Results Tightness in R lumbar A-P Shearing Test Results Negative Hip Special Tests Piriformis Test Results Tightness in R posterior hip WARREN Test Results Tightness in R lumbar PT-OP-Q Treatments Start: 09/13/22 16:01 Freq: Status: Active Protocol: Document 10/05/22 13:45 DCW (Rec: 10/05/22 14:30 DCW [id number]) Gym Equipment Shuttle Balance Red Details WBOS, Staggered /c ball toss, Lateral weight shift Therapeutic Exercises Supine Exercises Hamstring Stretch Supine Exercise Name HS stretch: sustained stretch with and without AP Side bilateral Piriformis stretch Supine Exercise Name Opposite knee to shoulder Side bilateral Reps/Minutes 60 Standing Exercises IR/ER Standing Exercise Name Half-kneel on stool Side bilateral Resistance Green Hip Extension Standing Exercise Name Hip Extension Side bilateral Resistance Green TB Reps/Minutes 2x10 Comments cued PPT, TA neutral pelvis Other Exercises Resisted ambulation Other Exercise Name Resisted side-stepping Resistance Green TB Equipment Used rail PRN Reps/Minutes 10 ft x2 laps Comments cued PPT, TA slow eccentric ft clearance Manual Therapy Treatment Soft Tissue Mobilization Lumbar Paraspinals Body Location Lumbar paraspinals, Glut med Mobilization Type Myofascial Release,Sustained Pressure,Trigger Point Release Intensity/Depth Moderate Body Position Prone Joint Mobilizations Lumbar Joint L1-5 Direction P->A Grade III Body Position Prone Manual Traction R hip Details long axis pull Body Position Supine Reps/Duration 10 SH x3 PT-OP-T Assessment and Plan Start: 09/13/22 16:01 Freq: Status: Active Protocol: Document 10/05/22 13:45 DCW (Rec: 10/05/22 14:30 DCW [id number]) Physical Therapy Assessment Impairments Impairments Activity Tolerance,Functional Activities,Functional Mobility ,Pain,Soft Tissue Mobility, Tone Goals Two Impairment Pt experiences increased pain with extended sitting or standing Furnace Installer Helper Goal (LTG) Pt to tolerate sitting in her car for longer than 35 minutes without increased pain to enable her to tolerate drive from [facility] with out worsening symptoms LTG Duration 11/13/22 One Impairment Pt does not have an appropriate Home Exercise Program Short Term Goal (STG) Pt to be independent and compliant with an appropriate HEP 09/18/22: HEP review: supine: LTR, HS & piriformis stretch, added resisted paloff press, hip ext, band walk laterally for home w/ HOs. 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 Physical Therapy Plan Frequency and Duration Frequency of Treatment 1-2x/week Plan of Care Start Date 09/13/22 Plan of Care End Date 11/13/22 Therapeutic Interventions Therapeutic Interventions Home Exercise Program,Joint Mobilizations,Manual Therapy, Neuromuscular Re-education, Patient/Caregiver Education, Self-Care/Home Management,Soft Tissue Mobilization, Therapeutic Activities, Therapeutic Exercises Modalities Cold Pack/Ice Massage,Hot Packs Next Visit Focus/Plan Next Note Type Treatment Note Next Visit Plan Recheck: quadruped stretching/ ROM, bird dog, POC: advance core strengthening while monitoring pain
--- NOTE | 2022-12-11 17:22 | PT.OPDS ---
Current Diagnoses Sciatica, unspecified side (10/05/22) Low back pain, unspecified (10/05/22) Visit Care Team Role Provider Type Inder Warren MD Attending Provider Physician Family Provider Primary Care Provider Referring Provider Specialty: Family Practice Address: [address] [place] [address], [id number] Email: [email or web address] Number Visit Number 7 Discharge Summary PT-OP-B Current Condition Start: 09/13/22 16:01 Freq: Status: Active Protocol: Document 09/13/22 13:45 DCW (Rec: 09/13/22 16:27 DCW [id number]) Current Condition History of Current Condition Onset Date 5-6 year history Current Complaints Low back pain, occasional radiating symptoms History of Current Condition Pt is a 41 year old female presenting with complaints of ongoing low back pain which has been off and on over the last 5-6 years. Unclear what was the initial cause, she thinks it may have been attempting to lift something, but she is unsure. In the past , pt notes she has had a flare -up if she moved wrong or twisted in some way, her back would bother her for 2-3 days, and then she would feel better. This most recent flare -up, however, lasted for multiple months, although she admits that she has been feeling much better recently, although there is still some lingering pain. 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 Noted that recently, when she has been sore, she had a very difficult time driving 25 minutes from [place] to [place]. Pt has been working out more recently, along with yoga, and she feels this has helped. Prior Treatments and Tests Pt reports she has not had any imaging yet at this time. PT-OP-C Subjective Start: 09/13/22 16:01 Freq: Status: Active Protocol: Document 10/05/22 13:45 DCW (Rec: 10/05/22 14:30 DCW [id number]) OP-PT Subjective Patient Comments Patient Comments Pt reports she spent a lot of time hiking this past weekend, and felt a little tighter the following day, but it is back to normal now. PT-OP-F Manual Assessment Start: 09/13/22 16:01 Freq: Status: Active Protocol: Document 09/13/22 13:45 DCW (Rec: 09/13/22 16:27 DCW [id number]) Manual Assessments Soft Tissue Assessment Soft Tissue Mobility Assessment Moderate tone in right lumbar paraspinals, QL, and piriformis. Complaints of non- specific muscle tightness with most passive movement of right LE, pt unable to define what or where she felt was tight. PT-OP-K Range of Motion Start: 09/13/22 16:01 Freq: Status: Active Protocol: Document 09/13/22 13:45 DCW (Rec: 09/13/22 16:27 DCW [id number]) Lumbar Spine Range of Motion Lumbar Spine Active Degrees Testing Position Standing Flexion 70 Extension 30 Lateral Flexion Left 46 Lateral Flexion Right 45 Comments Lateral flexion measured in cm from floor to fingertips Pt noted tightness in low back at end-range flexion PT-OP-L Special Tests Start: 09/13/22 16:01 Freq: Status: Active Protocol: Document 09/13/22 13:45 DCW (Rec: 09/13/22 16:27 DCW [id number]) Special Tests Lumbar Spine Special Tests Manual Traction Test Results Tightness in R lumbar Slump Test Results Tightness in R lumbar Vertical Spine Loading Test Results Tightness in R lumbar Reno Test Results Tightness in R lumbar Straight Leg Raise Test Results Tightness in R lumbar Standing Flexion Test Results Tightness in R lumbar Compression Test Results Tightness in R lumbar A-P Shearing Test Results Negative Hip Special Tests Piriformis Test Results Tightness in R posterior hip WARREN Test Results Tightness in R lumbar PT-OP-T Assessment and Plan Start: 09/13/22 16:01 Freq: Status: Active Protocol: Document 12/11/22 17:22 DCW (Rec: 12/11/22 17:22 DCW [id number]) Physical Therapy Assessment Assessment Summary Assessment Pt canceled last scheduled visit, has not scheduled any further follow-ups. Pt has now not been seen in more than two months, POC has now . Pt will require a new referral in order to return to skilled therapy. Pt will be discharged from PT at this time. Physical Therapy Plan Discharge Physical Therapy Discharge Reasons No Longer Attending PT
== END 2022-12-12 12:28 | disposition home or self-care (01) ==
LOC: PHYS 13:45
PROVIDERS: Family Provider Family Medicine; PCP Family Medicine; Referring Provider Family Medicine; Visit Provider Family Medicine
DX: M54.50 Low back pain, unspecified (principal); M54.30 Sciatica, unspecified side
CPT/HCPCS: 97110; 97140; 97161

== ENCOUNTER → 2023-02-01 10:54 | Outpatient (CLI) | payer OTHER, SELFPAY ==
[2023-02-01 12:15] LABS: Basophils Absolute Auto 0 /uL (0-100); Eosinophils Absolute Auto 0 /uL (0-450); Lymphocytes Percent Auto 38.8 % (25-40); Monocytes Absolute Auto 300 /uL (0-900); Neutrophils Absolute Auto 1200 /uL (1500-7000)
[2023-02-01 12:51] LABS: Erythrocyte Sedimentation Rate 9 MM/HR (0-20)
[2023-02-01 12:53] LABS: Appearance Urine UA CLEAR; Bilirubin Urine UA NEGATIVE (NEGATIVE); Color Urine UA YELLOW; Glucose Urine UA NEGATIVE (Negative); Ketones Urine UA NEGATIVE (NEGATIVE); Leukocyte Esterase Urine UA NEGATIVE (NEGATIVE); Nitrite Urine UA NEGATIVE (Negative); Occult Blood Urine UA NEGATIVE (Negative); Protein Urine UA NEGATIVE (Negative); Specific Gravity Urine UA <=1.005 (1.000-1.035); Urobilinogen Urine UA 0.2 E.U./dL (0.2)
[2023-02-01 12:55] LABS: Add Manual Diff / Slide Review NO; Basophils Percent Auto 0.9 % (0-2); Eosinophils Percent Auto 0.6 % (2-4); Hematocrit 38.6 % (36-46); Hemoglobin 12.9 g/dL (12.0-16.0); Lymphocytes Absolute Auto 1000 /uL (1100-4500); Mean Corpuscular HGB Conc 33.5 % (30-36); Mean Corpuscular Hemoglobin 29.1 PG (26-34); Mean Corpuscular Volume 86.8 fL (80-100); Monocytes Percent Auto 10.9 % (3-14); Neutrophils Percent Auto 48.8 % (50-75); Platelet Count 268 X10^3/uL (150-400); Red Blood Cell Count 4.45 X10^6/uL (4.0-5.2); Red Cell Distribution Width 13.9 % (11.6-14.8); White Blood Cell Count 2.5 X10^3/uL (4.5-11.0)
[2023-02-01 13:01] LABS: Alanine Aminotransferase 22 IU/L (<35); Albumin 4.7 g/dL (3.5-5.0); Albumin Globulin Ratio 1.3 (1.0-2.8); Alkaline Phosphatase 49 U/L (38-126); Aspartate Aminotransferase 33 IU/L (14-36); BUN Creatinine Ratio 11.1 (6-22); Bilirubin Total 0.4 mg/dL (0.2-1.3); Blood Urea Nitrogen 8 mg/dL (7-17); Calcium 9.2 mg/dL (8.4-10.2); Carbon Dioxide 30 mmol/L (22-32); Chloride 96 mmol/L (98-107); Estimated Glomerular Filt Rate > 60 mL/min (>60); Globulin 3.7 g/dL (1.7-4.1); Glucose 85 mg/dL (70-100); HEMOLYSIS < 15 (0-50); Potassium 3.8 mmol/L (3.4-5.1); Sodium 134 mmol/L (137-145); Total Protein 8.4 g/dL (6.3-8.2)
[2023-02-01 13:10] LABS: Bacteria Urine None Seen; Culture Indicated Urine Cult Not Indicated; RBC Urine None Seen (0-5/HPF); Squamous Epithelial Cell Urine 0-1 /HPF (0-5/HPF); WBC Urine None Seen (0-5/HPF)
[2023-02-01 13:46] LABS: C-Reactive Protein Quant < 0.5 mg/dL (<1.0)
[2023-02-02 06:33] LABS: Complement C3 76 mg/dL (82-167)
[2023-02-03 01:36] LABS: Complement Total CH50 37 U/mL (>41)
== END ==
PROVIDERS: Family Provider Family Medicine; PCP Family Medicine; Referring Provider Physician Assistant Medical; Visit Provider Physician Assistant Medical
DX: M32.9 Systemic lupus erythematosus, unspecified (principal)
CPT/HCPCS: 36415; 80053; 81001; 85025; 85651; 86140; 86160; 86162

== ENCOUNTER → 2023-02-19 13:53 | Outpatient (CLI) | payer OTHER, SELFPAY ==
[2023-02-19 14:45] LABS: Add Manual Diff / Slide Review NO; Basophils Absolute Auto 0 /uL (0-100); Basophils Percent Auto 0.7 % (0-2); Eosinophils Absolute Auto 0 /uL (0-450); Eosinophils Percent Auto 0.4 % (2-4); Hematocrit 36.2 % (36-46); Hemoglobin 12.2 g/dL (12.0-16.0); Lymphocytes Absolute Auto 900 /uL (1100-4500); Lymphocytes Percent Auto 32.7 % (25-40); Mean Corpuscular HGB Conc 33.8 % (30-36); Mean Corpuscular Volume 85.7 fL (80-100); Monocytes Absolute Auto 400 /uL (0-900); Monocytes Percent Auto 12.5 % (3-14); Neutrophils Absolute Auto 1500 /uL (1500-7000); Neutrophils Percent Auto 53.7 % (50-75); Platelet Count 213 X10^3/uL (150-400); Red Blood Cell Count 4.23 X10^6/uL (4.0-5.2); Red Cell Distribution Width 13.3 % (11.6-14.8); White Blood Cell Count 2.8 X10^3/uL (4.5-11.0)
== END ==
PROVIDERS: Family Provider Family Medicine; PCP Family Medicine; Referring Provider Physician Assistant Medical; Visit Provider Physician Assistant Medical
DX: D72.819 Decreased white blood cell count, unspecified (principal)
CPT/HCPCS: 36415; 85025

== ENCOUNTER → 2023-02-22 15:13 | Outpatient (CLI) | payer OTHER, SELFPAY ==
[2023-02-22 17:23] LABS: TSH w/ Reflex to FT4 3.67 uIU/mL (0.47-4.68)
== END ==
PROVIDERS: Family Provider Family Medicine; PCP Family Medicine; Referring Provider Family Medicine; Visit Provider Family Medicine
DX: E05.90 Thyrotoxicosis, unspecified without thyrotoxic crisis or storm (principal)
CPT/HCPCS: 36415; 84443

== ENCOUNTER → 2023-03-29 14:45 | Outpatient (CLI) | payer OTHER, SELFPAY ==
--- NOTE | 2023-03-29 | DI.MG.S_ITS ---
BILATERAL DIGITAL SCREENING MAMMOGRAM 3D/2D WITH CAD: 03/29/2023 CLINICAL: Routine screening. Comparison is made to exams dated: 08/31/2021 mammogram, 03/19/2020 mammogram, and 10/06/2019 mammogram - [facility]. Both breasts are extremely dense, which lowers the sensitivity of mammography (category d />75% glandular tissue). Current study was also evaluated with a Computer Aided Detection (CAD) system. There are biopsy clips in the right breast. No significant masses, calcifications, or other findings are seen in either breast. There has been no significant interval change. IMPRESSION: BENIGN There is no mammographic evidence of malignancy. A 1 year screening mammogram is recommended. Based on Tyrer-Cuzick model (a risk assessment model), the patient's lifetime risk is 22.4% and her 10 year risk is 3.2%. If a patient has an elevated risk, a more comprehensive evaluation should be considered and/or a referral to a genetic counselor. The [employer], [employer], and NCCN Guidelines advise the consideration of Breast MRI as an adjunct to screening mammography in patients whose Lifetime risk to develop breast cancer is 20% or higher. This exam was interpreted at Station ID: [id number]. NOTE: For mammograms, a report in lay terms will be sent to the patient. Approximately 15% of breast malignancies will not be visualized mammographically. In the management of a palpable breast mass, a negative mammogram must not discourage biopsy of a clinically suspicious lesion. Electronically Signed By: Loree garciab/:03/29/2023 17:16:57 letter sent: Normal Exam ACR BI-RADS Category 2: Benign Finding(s) [id number]
== END ==
PROVIDERS: Family Provider Family Medicine; PCP Family Medicine; Referring Provider Family Medicine; Visit Provider Family Medicine
DX: Z12.31 Encounter for screening mammogram for malignant neoplasm of breast (principal)
CPT/HCPCS: 77063; 77067

== ENCOUNTER → 2024-01-04 08:12 | Outpatient (CLI) | payer OTHER, SELFPAY ==
[2024-01-04 08:36] LABS: Add Manual Diff / Slide Review NO; Basophils Absolute Auto 0 /uL (0-100); Basophils Percent Auto 0.7 % (0-2); Eosinophils Absolute Auto 0 /uL (0-450); Eosinophils Percent Auto 0.4 % (2-4); Hematocrit 36.2 % (36-46); Hemoglobin 12.1 g/dL (12.0-16.0); Lymphocytes Absolute Auto 1200 /uL (1100-4500); Lymphocytes Percent Auto 39.8 % (25-40); Mean Corpuscular HGB Conc 33.4 % (30-36); Mean Corpuscular Volume 86.8 fL (80-100); Monocytes Absolute Auto 300 /uL (0-900); Monocytes Percent Auto 11.7 % (3-14); Neutrophils Absolute Auto 1400 /uL (1500-7000); Neutrophils Percent Auto 47.4 % (50-75); Platelet Count 232 X10^3/uL (150-400); Red Blood Cell Count 4.17 X10^6/uL (4.0-5.2); Red Cell Distribution Width 13.5 % (11.6-14.8); White Blood Cell Count 2.9 X10^3/uL (4.5-11.0)
[2024-01-04 09:05] LABS: Alanine Aminotransferase 24 IU/L (<35); Albumin 4.5 g/dL (3.5-5.0); Albumin Globulin Ratio 1.3 (1.0-2.8); Alkaline Phosphatase 47 U/L (38-126); Aspartate Aminotransferase 38 IU/L (14-36); BUN Creatinine Ratio 15.3 (6-22); Bilirubin Total 0.5 mg/dL (0.2-1.3); Blood Urea Nitrogen 11 mg/dL (7-17); Calcium 8.5 mg/dL (8.4-10.2); Carbon Dioxide 27 mmol/L (22-32); Chloride 104 mmol/L (98-107); Cholesterol 174 mg/dL (140-199); Estimated Glomerular Filt Rate > 60 mL/min (>60); Globulin 3.6 g/dL (1.7-4.1); Glucose 94 mg/dL (70-100); HDL Cholesterol 77 mg/dL (40-60); HEMOLYSIS < 15 (0-50); LDL Cholesterol Calculated 87 mg/dL (<100); Potassium 3.5 mmol/L (3.4-5.1); Sodium 137 mmol/L (137-145); Total Protein 8.1 g/dL (6.3-8.2); Triglycerides 48 mg/dL (35-150)
[2024-01-04 09:29] LABS: TSH w/ Reflex to FT4 1.88 uIU/mL (0.47-4.68)
== END ==
PROVIDERS: Family Provider Family Medicine; PCP Family Medicine; Referring Provider Family Medicine; Visit Provider Family Medicine
DX: E05.90 Thyrotoxicosis, unspecified without thyrotoxic crisis or storm (principal); M32.9 Systemic lupus erythematosus, unspecified
CPT/HCPCS: 36415; 80053; 80061; 84443; 85025

== ENCOUNTER → 2024-02-01 09:44 | Outpatient (CLI) | payer OTHER, SELFPAY ==
[2024-02-01 10:29] LABS: Appearance Urine UA CLEAR; Bilirubin Urine UA NEGATIVE (NEGATIVE); Color Urine UA YELLOW; Glucose Urine UA NEGATIVE (Negative); Ketones Urine UA NEGATIVE (NEGATIVE); Leukocyte Esterase Urine UA NEGATIVE (NEGATIVE); Nitrite Urine UA NEGATIVE (Negative); Occult Blood Urine UA NEGATIVE (Negative); Protein Urine UA NEGATIVE (Negative); Specific Gravity Urine UA <=1.005 (1.000-1.035); Urobilinogen Urine UA 0.2 E.U./dL (0.2); pH Urine UA 6.5 (4.5-8.0)
[2024-02-01 10:30] LABS: Bacteria Urine None Seen; RBC Urine None Seen (0-5/HPF); Squamous Epithelial Cell Urine None Seen (0-5/HPF); Urine Volume 10mL (spun); WBC Urine None Seen (0-5/HPF)
[2024-02-01 10:31] LABS: Culture Indicated Urine Cult Not Indicated
[2024-02-01 11:58] LABS: Add Manual Diff / Slide Review NO; Basophils Absolute Auto 0 /uL (0-100); Basophils Percent Auto 0.6 % (0-2); Eosinophils Absolute Auto 0 /uL (0-450); Eosinophils Percent Auto 0.4 % (2-4); Hematocrit 37.1 % (36-46); Hemoglobin 12.3 g/dL (12.0-16.0); Lymphocytes Absolute Auto 1400 /uL (1100-4500); Mean Corpuscular HGB Conc 33.1 % (30-36); Mean Corpuscular Hemoglobin 29.1 PG (26-34); Monocytes Absolute Auto 400 /uL (0-900); Monocytes Percent Auto 12.7 % (3-14); Neutrophils Absolute Auto 1100 /uL (1500-7000); Neutrophils Percent Auto 37.3 % (50-75); Platelet Count 228 X10^3/uL (150-400); Red Blood Cell Count 4.22 X10^6/uL (4.0-5.2); Red Cell Distribution Width 14.1 % (11.6-14.8); White Blood Cell Count 2.9 X10^3/uL (4.5-11.0)
[2024-02-01 12:19] LABS: Erythrocyte Sedimentation Rate 12 MM/HR (0-20)
[2024-02-01 12:28] LABS: Alanine Aminotransferase 33 IU/L (<35); Albumin 4.6 g/dL (3.5-5.0); Albumin Globulin Ratio 1.5 (1.0-2.8); Alkaline Phosphatase 43 U/L (38-126); Aspartate Aminotransferase 42 IU/L (14-36); BUN Creatinine Ratio 10.3 (6-22); Bilirubin Total 0.6 mg/dL (0.2-1.3); Blood Urea Nitrogen 7 mg/dL (7-17); C-Reactive Protein Quant < 0.5 mg/dL (<1.0); Calcium 8.6 mg/dL (8.4-10.2); Carbon Dioxide 24 mmol/L (22-32); Chloride 102 mmol/L (98-107); Estimated Glomerular Filt Rate > 60 mL/min (>60); Globulin 3.1 g/dL (1.7-4.1); Glucose 87 mg/dL (70-100); HEMOLYSIS < 15 (0-50); Potassium 3.8 mmol/L (3.4-5.1); Sodium 136 mmol/L (137-145); Total Protein 7.7 g/dL (6.3-8.2)
[2024-02-02 08:13] LABS: Complement C3 81 mg/dL (82-167)
[2024-02-06 04:09] LABS: Complement Total CH50 41 U/mL (>41)
== END ==
PROVIDERS: Family Provider Family Medicine; PCP Family Medicine; Referring Provider Physician Assistant Medical; Visit Provider Physician Assistant Medical
DX: M32.9 Systemic lupus erythematosus, unspecified (principal)
CPT/HCPCS: 36415; 80053; 81001; 85025; 85651; 86140; 86160; 86162

== ENCOUNTER → 2024-03-31 15:02 | Outpatient (CLI) | payer OTHER, SELFPAY ==
--- NOTE | 2024-03-31 15:03 | DI.MG.S_ITS ---
BILATERAL DIGITAL SCREENING MAMMOGRAM 3D/2D WITH CAD: 03/31/2024 CLINICAL: Routine screening. Comparison is made to exams dated: 03/29/2023 mammogram, 10/04/2021 mammogram, 08/31/2021 mammogram, 03/19/2020 mammogram, and 10/06/2019 mammogram - [facility]. The breasts are extremely dense, which lowers the sensitivity of mammography (category d />75% glandular tissue). Current study was also evaluated with a Computer Aided Detection (CAD) system. There are biopsy clips in the right breast. No significant masses, calcifications, or other findings are seen in either breast. There has been no significant interval change. IMPRESSION: NEGATIVE There is no mammographic evidence of malignancy. A 1 year screening mammogram is recommended. Based on Tyrer-Cuzick model (a risk assessment model), the patient's lifetime risk is 22.4% and her 10 year risk is 3.5%. If a patient has an elevated risk, a more comprehensive evaluation should be considered and/or a referral to a genetic counselor. The [employer] [employer], [employer], and NCCN Guidelines advise the consideration of Breast MRI as an adjunct to screening mammography in patients whose Lifetime risk to develop breast cancer is 20% or higher. This exam was interpreted at Station ID: [id number]. NOTE: For mammograms, a report in lay terms will be sent to the patient. Approximately 15% of breast malignancies will not be visualized mammographically. In the management of a palpable breast mass, a negative mammogram must not discourage biopsy of a clinically suspicious lesion. Electronically Signed By: Rey keen/sean:04/01/2024 11:17:11 letter sent: Normal Exam ACR BI-RADS Category 1: Negative
== END ==
PROVIDERS: Family Provider Family Medicine; PCP Family Medicine; Referring Provider Family Medicine; Visit Provider Family Medicine
DX: Z12.31 Encounter for screening mammogram for malignant neoplasm of breast (principal); R92.343 Mammographic extreme density, bilateral breasts
CPT/HCPCS: 77063; 77067

== ENCOUNTER → 2024-09-15 15:06 | Outpatient (CLI) | payer OTHER, SELFPAY ==
[2024-09-15 15:53] LABS: Add Manual Diff / Slide Review NO; Basophils Absolute Auto 0 /uL (0-100); Basophils Percent Auto 0.6 % (0-2); Eosinophils Absolute Auto 0 /uL (0-450); Eosinophils Percent Auto 0.4 % (2-4); Hemoglobin 12.4 g/dL (12.0-16.0); Lymphocytes Absolute Auto 1100 /uL (1100-4500); Lymphocytes Percent Auto 38.1 % (25-40); Mean Corpuscular HGB Conc 33.6 % (30-36); Mean Corpuscular Hemoglobin 29.4 PG (26-34); Mean Corpuscular Volume 87.5 fL (80-100); Monocytes Absolute Auto 300 /uL (0-900); Monocytes Percent Auto 10.7 % (3-14); Neutrophils Absolute Auto 1400 /uL (1500-7000); Neutrophils Percent Auto 50.2 % (50-75); Platelet Count 223 X10^3/uL (150-400); Red Blood Cell Count 4.23 X10^6/uL (4.0-5.2); Red Cell Distribution Width 13.9 % (11.6-14.8); White Blood Cell Count 2.9 X10^3/uL (4.5-11.0)
== END ==
LOC: LAB 15:07
PROVIDERS: Family Provider Family Medicine; PCP Family Medicine; Referring Provider Physician Assistant Medical; Visit Provider Physician Assistant Medical
DX: M32.9 Systemic lupus erythematosus, unspecified (principal)
CPT/HCPCS: 36415; 85025

== ENCOUNTER → 2025-04-01 14:30 | Outpatient (CLI) | payer OTHER, SELFPAY ==
--- NOTE | 2025-04-01 14:31 | DI.MG.S_ITS ---
MM screening mammo BI: 04/01/2025. BI-RADS: 2 CLINICAL: 44-year old female for bilateral screening mammogram. Tyrer-Cuzick lifetime risk of 12.5%. No personal or first-degree family history of breast cancer. PRIOR EXAMS: 03/31/2024, 03/29/2023, 03/31/2022, 10/04/2021, 08/31/2021, 09/08/2020, 03/19/2020, 10/24/2019, 10/06/2019. MAMMOGRAPHY TECHNIQUE: 2D and 3D (tomosynthesis) digital mammographic views obtained, with additional images as needed for full coverage. Current study was also evaluated with a Computer Aided Detection (CAD) system. DENSITY D. The breasts are extremely dense, which lowers the sensitivity of mammography. MAMMOGRAPHY FINDINGS Right: Biopsy markers present on the right. There are no suspicious masses, calcifications, or other findings in the breast. Left: No suspicious mass, asymmetry, microcalcification, or other abnormality seen. IMPRESSION: Right * No evidence of malignancy with benign findings. Left * No evidence of malignancy. RECOMMENDATIONS Bilateral * Annual screening mammography. OVERALL ASSESSMENT CATEGORY BI-RADS-2: Benign. The [employer] recommends annual screening mammography beginning at age 40 for women with average risk of breast cancer. ELECTRONICALLY SIGNED: Lexii Cardenas M.D. on 04/01/2025 at 04:35:50 PM PT Interpreting Station ID: [id number]
== END ==
LOC: MAMMO 14:30
PROVIDERS: Family Provider Family Medicine; PCP Family Medicine; Referring Provider Family Medicine; Visit Provider Family Medicine
DX: Z12.31 Encounter for screening mammogram for malignant neoplasm of breast (principal); R92.343 Mammographic extreme density, bilateral breasts
CPT/HCPCS: 77063; 77067

== ENCOUNTER → 2025-04-14 10:46 | Outpatient (CLI) | payer OTHER, SELFPAY ==
--- NOTE | 2025-04-14 10:47 | DI.MRI.S_ITS ---
MR breast BI wo/w con: 04/14/2025. BI-RADS: 3 CLINICAL: 44-year old female for bilateral diagnostic breast MRI. Mammographically Dense breast tissue. No personal or first-degree family history of breast cancer. PRIOR EXAMS 04/01/2025, 03/31/2024, 03/29/2023, 03/31/2022, 10/04/2021, 08/31/2021, 09/08/2020, 03/19/2020, 10/24/2019, 10/06/2019. MRI TECHNIQUE Bilateral breast MRI was performed on a 1.5 Ekaterina magnet using a dedicated breast coil with mild compression. Axial T1 and T2 STIR sequences were obtained. Dynamic contrast enhanced VIBRANT fat-suppressed sequences were obtained. Delayed sagittal high resolution or sagittal reconstructed isotropic sequence was also obtained. Subtraction images and maximum intensity projection images were obtained. The study was evaluated using Zapproved software. IV Contrast: 20 ml ProHance. FIBROGLANDULAR TISSUE Bilateral: D. Extreme fibroglandular tissue. BACKGROUND PARENCHYMAL ENHANCEMENT Bilateral: Moderate symmetrical background parenchymal enhancement. BREAST FINDINGS Right: Upper Inner at 1:00, 5 cm from nipple, (Sagittal S:13/I:74), (Axial S:11/I:99), Posterior depth, measuring 0.5 x 0.5 x 0.8cm: There is an oval, circumscribed enhancing mass with dark internal septations. Kinetic enhancement curve shows fast initial phase and persistent pattern on delayed phase. On non-contrast sequences this mass shows high signal intensity on STIR/T2-weighted sequences. This likely represents a fibroadenoma. Right: Axilla: There are multiple prominent level 1 axillary lymph nodes. Right: Surgical clip(s) and/or marker(s) present on the right with benign-appearing cyst or cysts noted. Left: at 11:00, 2 cm from nipple, (Sagittal S:14/I:61), (Axial S:7/I:90), measuring 1.9cm: There is non-mass enhancement in focal distribution with kinetic enhancement curve showing fast initial phase and persistent pattern on delayed phase. The nonmass enhancement is located on the periphery and within fibroglandular tissue. This may represent background parenchymal enhancement. Left: Axilla: There are multiple prominent level 1 axillary lymph nodes. Left: Benign-appearing cyst or cysts noted. IMPRESSION: Right (Mass): Upper Inner at 1:00, 5 cm from nipple, (Sagittal S:13/I:74), (Axial S:11/I:99), Posterior depth, measuring 0.5 x 0.5 x 0.8cm * Probably Benign. Right: Axilla * Probably Benign. Left (Non-Mass): at 11:00, 2 cm from nipple, (Sagittal S:14/I:61), (Axial S:7/I:90), measuring 1.9cm * Probably Benign. Left: Axilla * Probably Benign. RECOMMENDATIONS Right: Upper Inner at 1:00, 5 cm from nipple, Posterior depth * Further evaluation with diagnostic ultrasound. * Second-look ultrasound. If there is no ultrasound correlate, six-month breast MRI would be recommended. Right: Axilla * Further evaluation with diagnostic ultrasound. * Recommend further management based on the sonographic appearance. Left: at 11:00, 2 cm from nipple * Further evaluation with diagnostic ultrasound. * Second-look ultrasound. If there is no ultrasound correlate, six-month breast MRI would be recommended. Left: Axilla * Further evaluation with diagnostic ultrasound. * Recommend further management based on the sonographic appearance. COMMENTS: The imaging literature indicates that a negative contrast breast MRI examination has a high sensitivity and a moderate specificity for detecting and excluding invasive carcinomas to a detection threshold of 3-5 mm; nonetheless, appropriate clinical and mammographic follow-up are recommended. MRI is not sensitive for detecting DCIS (ductal carcinoma in situ) and may not detect large invasive neoplasms that show only minimal enhancement such as mucinous carcinoma. If there are suspicious calcifications or clinically worrisome palpable masses, then biopsy should still be considered. Invasive neoplasms can be hidden by co-existent and benign enhancement caused by mastitis, hormone therapy effects, radiation therapy, , and recent biopsy or surgery. False positive examinations can occur in a number of circumstances, including breasts that have recently been subject to invasive procedures and those that contain atypical ductal hyperplasia, hormonally stimulated glandular tissue, fat necrosis, or radial scars. OVERALL ASSESSMENT CATEGORY BI-RADS-3: Probably Benign. ELECTRONICALLY SIGNED: Lexii Cardenas M.D. on 04/16/2025 at 02:47:43 PM PT Interpreting Station ID: [id number]
== END ==
LOC: MRI 10:47
PROVIDERS: Family Provider Family Medicine; PCP Family Medicine; Referring Provider Family Medicine; Visit Provider Physician Assistant
DX: Z12.39 Encounter for other screening for malignant neoplasm of breast (principal); N63.12 Unspecified lump in the right breast, upper inner quadrant; N60.02 Solitary cyst of left breast; R92.323 Mammographic fibroglandular density, bilateral breasts
CPT/HCPCS: 77049; A9579

== ENCOUNTER → 2025-05-06 09:08 | Outpatient (CLI) | payer OTHER, SELFPAY ==
--- NOTE | 2025-05-06 09:08 | DI.US.S_ITS ---
US breast BI limited: 05/06/2025. BI-RADS: 3
== END ==
LOC: US 09:08
PROVIDERS: Family Provider Family Medicine; PCP Family Medicine; Referring Provider Physician Assistant; Visit Provider Physician Assistant
DX: R92.8 Other abnormal and inconclusive findings on diagnostic imaging of breast (principal); N63.12 Unspecified lump in the right breast, upper inner quadrant
CPT/HCPCS: 76642